=== PATIENT | female | born 1940 | race Caucasian/White ===

== ENCOUNTER 2017-10-31 00:25 | Inpatient (IN) | payer MEDICARE, MEDICAID ==
[2017-10-31] VITALS (36 sets, daily range): BP systolic 91–157; BP diastolic 54–106
[~2017-10-31] VITALS: Ht 154.9 cm; Wt 68.1 kg
[2017-10-31] MEDS ORDERED: DEXAMETHASONE 4 MG/ML SDV (DECADRON) ONE (00:29)
[2017-10-31] MEDS ORDERED: methylPREDNISolone 125 MG (Solu-MEDROL) VIAL IV STA (00:29)
[2017-10-31] MEDS ORDERED: DEXAMETHASONE 4 MG/ML SDV (DECADRON) IH ONE (00:30)
[2017-10-31] MEDS ORDERED: RT-ALBUTEROL/IPRATROPIUM 3 ML (DUONEB) VIAL ONE (00:30)
[2017-10-31] MEDS ORDERED: RT-ALBUTEROL SULF 2.5 MG/3 ML PRE-MIX VIAL ONE (00:30)
[2017-10-31] MEDS ORDERED: RT-ALBUTEROL/IPRATROPIUM 3 ML (DUONEB) VIAL INH ONE (00:30)
[2017-10-31] MEDS ORDERED: NS IV 1000 ML 1,000 ML ONE (00:40)
[2017-10-31] MEDS ORDERED: NS IV 1000 ML 1,000 ML IV ONE (00:42)
[2017-10-31] MEDS ORDERED: RT-ALBUTEROL SULF 2.5 MG/3 ML PRE-MIX VIAL INH STA ×5 (01:05→01:06)
[2017-10-31 01:07] LABS: BASOPHILS % (AUTO) 0 % (0-10); EOSINOPHILS # (AUTO) 0.1 10^3/uL (0.0-0.3); EOSINOPHILS % (AUTO) 0 % (0-10); HEMATOCRIT 40 % (35-52); HEMOGLOBIN 12.1 G/DL (11.5-16.0); LYMPHOCYTES # (AUTO) 2.5 X 10^3 (1.0-4.0); LYMPHOCYTES % (AUTO) 18 % (12-44); MEAN CORPUSCULAR HEMOGLOBIN 30 PG (25-34); MEAN CORPUSCULAR HGB CONC 30 G/DL (32-36); MEAN CORPUSCULAR VOLUME 99 FL (80-99); MEAN PLATELET VOLUME 11.1 FL (7.4-10.4); MONOCYTES # (AUTO) 0.3 X 10^3 (0.0-1.0); MONOCYTES % (AUTO) 2 % (0-12); NEUTROPHILS # (AUTO) 11.1 X 10^3 (1.8-7.8); NEUTROPHILS % (AUTO) 79 % (42-75); PLATELET COUNT 258 10^3/uL (130-400); RED BLOOD COUNT 4.06 10^6/uL (4.35-5.85); RED CELL DISTRIBUTION WIDTH 14.3 % (10.0-14.5)
[2017-10-31 01:15] LABS: ABG BASE EXCESS 2.5 MMOL/L (-2.5-2.5); ABG OXYGEN SATURATION 93 % (94-100); ABG PCO2 59 MMHG (35-45); ABG PO2 83 MMHG (79-93); ABG TCO2 30.2 MMOL/L (21.0-31.0)
[2017-10-31 01:15] LABS: PROTHROMBIN TIME PATIENT 13.3 SEC (12.2-14.7)
[2017-10-31 01:20] LABS: ALLENS TEST YES-POS; INSPIRED O2 8L; PATIENT TEMP 98.6; VENTILATOR NO
[2017-10-31 01:23] LABS: ALANINE AMINOTRANSFERASE 8 U/L (0-55); ALBUMIN 3.9 GM/DL (3.2-4.5); ALKALINE PHOSPHATASE 85 U/L (40-136); BILIRUBIN,TOTAL 0.3 MG/DL (0.1-1.0); BUN/CREATININE RATIO 19; CALCIUM 9.4 MG/DL (8.5-10.1); CARBON DIOXIDE 28 MMOL/L (21-32); CHLORIDE 103 MMOL/L (98-107); CREATININE SERUM 0.91 MG/DL (0.60-1.30); GFR ESTIMATED 60; GLUCOSE 180 MG/DL (70-105); MAGNESIUM 1.9 MG/DL (1.8-2.4); POTASSIUM 3.9 MMOL/L (3.6-5.0); SODIUM 142 MMOL/L (135-145); TOTAL PROTEIN 7.9 GM/DL (6.4-8.2)
[2017-10-31] MEDS ORDERED: cefTRIAXone INJECTION 1,000 MG in NS (IVPB) 100 ML IV ONE (01:30)
[2017-10-31 01:36] LABS: BILIRUBIN,URINE NEGATIVE (NEGATIVE); CLARITY,URINE CLEAR; COLOR,URINE YELLOW; GLUCOSE, URINE (UA) NEGATIVE (NEGATIVE); KETONES,URINE NEGATIVE (NEGATIVE); LEUKOCYTE ESTERASE ,URINE NEGATIVE (NEGATIVE); NITRITE,URINE NEGATIVE (NEGATIVE); PH,URINE 6.5 (5-9); PROTEIN,URINE NEGATIVE (NEGATIVE); UROBILINOGEN,URINE NORMAL (NORMAL)
--- NOTE | 2017-10-31 01:48 | ED Respiratory ---
General Stated Complaint: SOA Source: EMS, [facility] records Exam Limitations: other (PT NOT ABLE TO ANSWER MOST QUESTIONS DUE TO RESPIRATORY DISTRESS) History of Present Illness Date Seen by Provider: Oct 31, 2017 Time Seen by Provider: 00:25 Initial Comments PT ARRIVES VIA EMS FROM [facility] ( [facility] ) PT WITH HISTORY OF COPD HAS HAD INCREASED SHORTNESS OF BREATH THIS EVENING O2 SATS WERE 60% AT [facility]--UP TO 89% ON 4L/NC BP WAS IN 60'S SYSTOLIC AT [facility] PT HAS HAD A COUGH FOR UNKNOWN LENGTH OF TIME PT DENIES CHEST PAIN NO EVIDENCE OF LEG EDEMA NO REPORTED FEVER DUO NEB TREATMENT WAS INITIATED AT [facility] AND EMS CONTINUED IT--O2 SATS UP TO 91% DURING TREATMENT WITH 10L O2 PT IS DNR. PCP: DR. UNGER Allergies and Home Medications Allergies Coded Allergies: codeine (Verified Allergy, Unknown, 02/26/16) morphine (Verified Allergy, Unknown, 02/26/16) Patient Home Medication List Home Medication List Reviewed: Yes Review of Systems Constitutional: no symptoms reported, other (VERY LIMITED INFORMATION) Respiratory: see HPI, cough, short of breath, wheezing Cardiovascular: No chest pain, No edema Past Yiarxae-Vkcwqq-Oaphwt Hx Patient Social History Alcohol Use: Past History (DETAILS UNKNOWN) Recreational Drug Use: No Smoking Status: Former Smoker (DETAILS UNKNOWN) Recent Foreign Travel: No Contact w/Someone Who Travel: No Recent Hopitalizations: No Past Medical History Surgeries: Yes (SURGERIES UNKNOWN) Abdominal Respiratory: Yes COPD Musculoskeletal: Yes (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) Arthritis Anxiety, Depression Physical Exam Vital Signs Vital Signs - First Documented Capillary Refill : General Appearance: WD/WN, severe distress (RESPIRATORY DISTRESS, AUDIBLE WHEEZING, CAN ONLY TALK IN 1-2 WORD SENTENCES OR SLIGHTLY NODS HEAD YES/NO AT TIMES) Respiratory: respiratory distress, decreased breath sounds, accessory muscle use, wheezing (AUDIBLE) Cardiovascular: tachycardia Gastrointestinal: soft Extremities: no pedal edema, normal capillary refill Neurologic/Psychiatric: no motor/sensory deficits (GROSSLY INTACT), other ( AWAKE BUT LETHARGIC--WITH SIGNIFICANT RESPIRATORY DISTRESS) Skin: normal color, warm/dry Focused Exam Lactate Level 10/31/17 00:30: Lactic Acid Level 2.16*H Lactic Acid Level Laboratory Tests Test 10/31/17 00:30 Lactic Acid Level 2.16 MMOL/L (0.50-2.00) *H Progress/Results/Core Measures Suspected Sepsis SIRS Temperature: Pulse: 150 Respiratory Rate: 26 Laboratory Tests 10/31/17 00:30: White Blood Count 14.0H Blood Pressure 105 /23 Mean: 10/31/17 00:30: Lactic Acid Level 2.16*H Laboratory Tests 10/31/17 00:30: Creatinine 0.91, INR Comment 1.0, Platelet Count 258, Total Bilirubin 0.3 Results/Orders Lab Results Laboratory Tests Test 10/31/17 00:30 10/31/17 01:08 Range/Units White Blood Count 14.0 H 4.3-11.0 10^3/uL Red Blood Count 4.06 L 4.35-5.85 10^6/uL Hemoglobin 12.1 11.5-16.0 G/DL Hematocrit 40 35-52 % Mean Corpuscular Volume 99 80-99 FL Mean Corpuscular Hemoglobin 30 25-34 PG Mean Corpuscular Hemoglobin Concent 30 L 32-36 G/DL Red Cell Distribution Width 14.3 10.0-14.5 % Platelet Count 258 130-400 10^3/uL Mean Platelet Volume 11.1 H 7.4-10.4 FL Neutrophils (%) (Auto) 79 H 42-75 % Lymphocytes (%) (Auto) 18 12-44 % Monocytes (%) (Auto) 2 0-12 % Eosinophils (%) (Auto) 0 0-10 % Basophils (%) (Auto) 0 0-10 % Neutrophils # (Auto) 11.1 H 1.8-7.8 X 10^3 Lymphocytes # (Auto) 2.5 1.0-4.0 X 10^3 Monocytes # (Auto) 0.3 0.0-1.0 X 10^3 Eosinophils # (Auto) 0.1 0.0-0.3 10^3/uL Basophils # (Auto) 0.0 0.0-0.1 10^3/uL Prothrombin Time 13.3 12.2-14.7 SEC INR Comment 1.0 0.8-1.4 Activated Partial Thromboplast Time 27 24-35 SEC Sodium Level 142 135-145 MMOL/L Potassium Level 3.9 3.6-5.0 MMOL/L Chloride Level 103 98-107 MMOL/L Carbon Dioxide Level 28 21-32 MMOL/L Anion Gap 11 5-14 MMOL/L Blood Urea Nitrogen 17 7-18 MG/DL Creatinine 0.91 0.60-1.30 MG/DL Estimat Glomerular Filtration Rate 60 BUN/Creatinine Ratio 19 Glucose Level 180 H 70-105 MG/DL Lactic Acid Level 2.16 *H 0.50-2.00 MMOL/L Calcium Level 9.4 8.5-10.1 MG/DL Magnesium Level 1.9 1.8-2.4 MG/DL Total Bilirubin 0.3 0.1-1.0 MG/DL Aspartate Amino Transf (AST/SGOT) 15 5-34 U/L Alanine Aminotransferase (ALT/SGPT) 8 0-55 U/L Alkaline Phosphatase 85 40-136 U/L Troponin I < 0.30 <0.30 NG/ML B-Type Natriuretic Peptide 16.4 <100.0 PG/ML Total Protein 7.9 6.4-8.2 GM/DL Albumin 3.9 3.2-4.5 GM/DL Blood Gas Puncture Site LEFT RADIAL Blood Gas Patient Temperature 98.6 Arterial Blood pH 7.30 *L 7.37-7.43 Arterial Blood Partial Pressure CO2 59 H 35-45 MMHG Arterial Blood Partial Pressure O2 83 79-93 MMHG Arterial Blood HCO3 28 H 23-27 MMOL/L Arterial Blood Total CO2 30.2 21.0-31.0 MMOL/L Arterial Blood Oxygen Saturation 93 L 94-100 % Arterial Blood Base Excess 2.5 -2.5-2.5 MMOL/L Demetri Test YES-POS Blood Gas Ventilator Setting NO Blood Gas Inspired Oxygen 8L My Orders Orders - BRISSA DEGROOT DO Saline Lock/Iv-Start (10/31/17:) Ekg Tracing (10/31/17:) O2 (10/31/17:) Monitor-Rhythm Ecg Trace Only (10/31/17) Arterial Blood Gas (10/31/17:) BNP (10/31/17) Cbc With Automated Diff (10/31/17:) Comprehensive Metabolic Panel (10/31/17:) Lactic Acid Analyzer (10/31/17:) Magnesium (10/31/17:) Protime With Inr (10/31/17) Partial Thromboplastin Time (10/31/17 00:29) Troponin I (10/31/17 00:29) Blood Culture (10/31/17 00:29) Albuterol/Ipra Inhalation Soln (Duoneb I (10/31/17 00:30) Dexamethasone Injection (Decadron Inject (10/31/17 00:30) Rt Request For Service (Other) (10/31/17 00:29) Methylprednisolone Sod Succ (Solu-Medrol (10/31/17 00:29) Svn Small Volume Nebulizer (10/31/17 00:29) Saline Lock/Iv-Start (10/31/17 00:42) Ns Iv 1000 Ml (Sodium Chloride 0.9%) (10/31/17 00:42) Ns Iv 1000 Ml (Sodium Chloride 0.9%) (10/31/17 00:40) Albuterol Pre-Mix Nebs (Rt) (Proventil (10/31/17 01:05) Svn Small Volume Nebulizer (10/31/17 01:05) Albuterol Pre-Mix Nebs (Rt) (Proventil (10/31/17 01:05) Svn Small Volume Nebulizer (10/31/17 01:05) Albuterol Pre-Mix Nebs (Rt) (Proventil (10/31/17 01:06) Svn Small Volume Nebulizer (10/31/17 01:06) Albuterol Pre-Mix Nebs (Rt) (Proventil (10/31/17 01:06) Svn Small Volume Nebulizer (10/31/17 01:06) Albuterol Pre-Mix Nebs (Rt) (Proventil (10/31/17 01:06) Svn Small Volume Nebulizer (10/31/17 01:06) Chest 1 View, Ap/Pa Only (10/31/17 ) Ceftriaxone Injection (Rocephin Injectio (10/31/17 01:30) Medications Given in ED Current Medications Medications Dose Ordered Sig/Ling Route Start Time Stop Time Status Last Admin Dose Admin Albuterol/ Ipratropium 3 ml ONCE ONCE INH 10/31/17 00:30 10/31/17 00:32 DC 10/31/17 00:45 3 ML Dexamethasone Sodium Phosphate 30 mg ONCE ONCE IH 10/31/17 00:30 10/31/17 00:32 DC 10/31/17 00:45 30 MG Sodium Chloride 1,000 ml @ 0 mls/hr Q0M ONCE IV 10/31/17 00:42 10/31/17 00:43 DC 10/31/17 00:40 60 MLS/HR Vital Signs/I&O 10/31/17 10/31/17 10/31/17 10/31/17 00:25 00:25 00:45 00:46 Temp 98.4 98.3 Pulse 130 128 Resp 32 27 B/P (MAP) 69/35 (46) 88/37 Pulse Ox 90 90 90 90 O2 Delivery Simple Mask Simple Mask Simple Mask Simple Mask O2 Flow Rate 10.00 10.00 10.00 8.00 10/31/17 01:00 Temp 98.1 Pulse 130 Resp 40 B/P (MAP) 116/52 Pulse Ox 90 O2 Delivery Simple Mask O2 Flow Rate 10.00 Capillary Refill : Progress Note : Progress Note BP UP WITH FLUIDS O2 SATS UP WITH CONTINUOUS NEB TREATMENT, AND THEN BIPAP PLACED, AFTER RECEIVING ABG RESULTS, AND PT SHOWING SIGNS OF RESPIRATORY FATIGUE. ECG Initial ECG Impression Date: Oct 31, 2017 Initial ECG Impression Time: 00:57 Initial ECG Rate: 128 Initial ECG Rhythm: S.Tach Initial ECG Impression: Nonspecific Changes (IVCD) Diagnostic Imaging Comments CXR--BIBASILAR ATELECTASIS/INFILTRATES; CHRONIC LINEAR SCARRING YAMILEX--PENDING RADIOLOGIST REVIEW Reviewed: Reviewed by [place] Departure Communication (Admissions) 0129--SPOKE WITH DR. BERNAL, ACCEPTS PT FOR ADMIT. Impression Primary Impression: Acute on chronic respiratory failure Additional Impressions: Severe sepsis SUSPECTED PNEUMONIA Disposition: ADMITTED INPATIENT Condition: Improved Admissions Decision to Admit Reason: Admit from ER (General) Decision to Admit/Date: Oct 31, 2017 Time/Decision to Admit Time: 01:30 Departure-Patient Inst. Referrals: JACK UNGER DO (PCP/Family) Primary Care Physician BRISSA DEGROOT DO Oct 31, 2017 01:48
[2017-10-31 01:54] LABS: BACTERIA,URINE NEGATIVE /HPF
[2017-10-31 02:45] LABS: ABG BASE EXCESS 1.9 MMOL/L (-2.5-2.5); ABG OXYGEN SATURATION 94 % (94-100); ABG PCO2 53 MMHG (35-45); ABG PO2 78 MMHG (79-93); ABG TCO2 28.9 MMOL/L (21.0-31.0)
[2017-10-31 02:48] LABS: ABG PH 7.33 (7.37-7.43); ALLENS TEST YES-POS; INSPIRED O2 50%; PATIENT TEMP 98.3; VENTILATOR NO
[2017-10-31] MEDS ORDERED: RT-ALBUTEROL/IPRATROPIUM 3 ML (DUONEB) VIAL INH PRN (04:30)
[2017-10-31] MEDS ORDERED: NS IV PRN (04:30)
[2017-10-31] MEDS: NOREPINEPHRINE 4 MG in NS (IVPB) 250 ML IV SCH ×2 (04:31→18:03)
[2017-10-31] MEDS: NS IV 1000 ML 1,000 ML IV SCH ×4 (04:32→17:00)
[2017-10-31] MEDS: RT-ALBUTEROL/IPRATROPIUM 3 ML (DUONEB) VIAL INH SCH ×5 (05:55→22:24)
[2017-10-31] MEDS: methylPREDNISolone 125 MG (Solu-MEDROL) VIAL IVP SCH ×3 (07:11→18:44)
--- NOTE | 2017-10-31 07:47 | Diagnostic Imaging Report ---
Indication: Shortness of air. Comparison: The study is compared with exam 02/26/2016. Findings: Some linear scarring left perihilar radiating to the lateral chest wall, unchanged air trapping and COPD are chronic. Some biapical pleural-parenchymal scarring stable. There is artifact with overlying support apparatus projecting over the left upper chest and paramediastinal region, partially obscuring that segment. No effusion or pneumothorax and no adverse development is apparent. Impression: Stable chronic findings as described. Dictated by: Dictated on workstation # [id number]
[2017-10-31 08:09] LABS: BASOPHILS % (AUTO) 0 % (0-10); EOSINOPHILS % (AUTO) 0 % (0-10); HEMATOCRIT 36 % (35-52); HEMOGLOBIN 10.8 G/DL (11.5-16.0); LYMPHOCYTES # (AUTO) 0.3 X 10^3 (1.0-4.0); LYMPHOCYTES % (AUTO) 2 % (12-44); MEAN CORPUSCULAR HEMOGLOBIN 30 PG (25-34); MEAN CORPUSCULAR HGB CONC 30 G/DL (32-36); MEAN CORPUSCULAR VOLUME 99 FL (80-99); MEAN PLATELET VOLUME 10.5 FL (7.4-10.4); MONOCYTES # (AUTO) 0.3 X 10^3 (0.0-1.0); MONOCYTES % (AUTO) 2 % (0-12); NEUTROPHILS # (AUTO) 20.3 X 10^3 (1.8-7.8); NEUTROPHILS % (AUTO) 97 % (42-75); PLATELET COUNT 206 10^3/uL (130-400); RED BLOOD COUNT 3.62 10^6/uL (4.35-5.85); RED CELL DISTRIBUTION WIDTH 14.2 % (10.0-14.5); WHITE BLOOD COUNT 20.9 10^3/uL (4.3-11.0)
[2017-10-31 08:30] LABS: BAND NEUTROPHILS 2 %; BASOPHILS % (MANUAL) 0 %; EOSINOPHILS % (MANUAL) 0 %; LYMPHOCYTES % (MANUAL) 3 %; MONOCYTES % (MANUAL) 1 %; NEUTROPHILS % (MANUAL) 94 %; RBC MORPH NORMAL
[2017-10-31 08:31] LABS: ALANINE AMINOTRANSFERASE 8 U/L (0-55); ALBUMIN 3.5 GM/DL (3.2-4.5); ALKALINE PHOSPHATASE 68 U/L (40-136); BILIRUBIN,TOTAL 0.3 MG/DL (0.1-1.0); BUN/CREATININE RATIO 21; CALCIUM 8.5 MG/DL (8.5-10.1); CARBON DIOXIDE 25 MMOL/L (21-32); CHLORIDE 107 MMOL/L (98-107); CREATININE SERUM 0.85 MG/DL (0.60-1.30); GFR ESTIMATED > 60; GLUCOSE 217 MG/DL (70-105); POTASSIUM 3.7 MMOL/L (3.6-5.0); SODIUM 142 MMOL/L (135-145); TOTAL PROTEIN 7.1 GM/DL (6.4-8.2)
--- NOTE | 2017-10-31 08:43 | Diagnostic Imaging Report ---
INDICATION: Respiratory failure, sepsis and hypotension. Comparison made with prior examination 10/31/2017. FINDINGS: Heart size is normal. There is some unchanged scarring or atelectasis in left upper lobe. There are patchy bibasilar infiltrates left greater than right. There appears to be a small left pleural effusion. There is no pneumothorax. Mediastinum is unremarkable. IMPRESSION: Patchy bibasilar infiltrates, left greater than right with unchanged linear scarring or atelectasis in the left perihilar region. Dictated by: Dictated on workstation # [id number]
[2017-10-31] MEDS: AZITHROMYCIN INJECTION 500 MG in NS (IVPB) 250 ML IV SCH (09:48)
[2017-10-31] MEDS ORDERED: ACET325T38 PO (10:17)
[2017-10-31] MEDS ORDERED: TIOT18CA2 INH (10:17)
[2017-10-31] MEDS ORDERED: BACL10TA PO (10:17)
[2017-10-31] MEDS ORDERED: METH10TA2 PO (10:17)
[2017-10-31] MEDS ORDERED: GUAI600T43 PO (10:17)
[2017-10-31] MEDS ORDERED: ALBU18HF2 INH (10:17)
[2017-10-31] MEDS ORDERED: SERT50TA9 PO (10:17)
[2017-10-31] MEDS ORDERED: BUDE10.2 INH (10:17)
[2017-10-31] MEDS ORDERED: TRAZ100T92 PO (10:17)
[2017-10-31] MEDS ORDERED: HYDR-3820 PO (10:17)
[2017-10-31] MEDS ORDERED: LORA0.5T PO (10:17)
[2017-10-31] MEDS ORDERED: CHOL200025 PO (10:17)
[2017-10-31] MEDS ORDERED: NF-SOLIF5T PO (10:17)
--- NOTE | 2017-10-31 13:41 | History & Physical-Hospitalist ---
History of Present Illness HPI/Chief Complaint The patient is a 76-year-old white female resident of [facility]. She was sent to the emergency room yesterday by the staff after observing that her O2 saturations had dropped to 60 percent. By her arrival her SaO2 was 89 percent on 4 L per nasal cannula. Her blood pressure was said to be 60 systolic at the residential she reports that she has had chronic respiratory difficulties. She uses oxygen chronically. She is a DO NOT RESUSCITATE status. Source: patient Exam Limitations: other (patient seems to be confused about disease, dates, and her situation) Date Seen 10/31/17 Time Seen by Provider: 13:36 Attending Physician Sergio Bernal MD PCP Ron Welch DO Referring Physician Date of Admission Oct 31, 2017 at 01:20 Home Medications & Allergies Home Medications Reviewed patient Home Medication Reconciliation performed by pharmacy medication reconciliations industrial ecology technician and/or nursing. Patients Allergies have been reviewed. Allergies Allergies Coded Allergies codeine (Verified Allergy, Unknown, 02/26/16) morphine (Verified Allergy, Unknown, 02/26/16) Past Iveldwf-Ycxvpi-Sxytus Hx Past Med/Social Hx: Reviewed Nursing Past Med/Soc Hx Patient Social History Alcohol Use: Past History Recreational Drug Use: No Smoking Status: Former Smoker Physical Abuse Screen: No Sexual Abuse: No Recent Foreign Travel: No Contact w/other who traveled: No Recent Hopitalizations: No Recent Infectious Disease Expo: No Immunizations Up To Date Date of Pneumonia Vaccine: May 02, 2016 Seasonal Allergies Seasonal Allergies: No Past Medical History Surgeries: Abdominal Currently Using BIPAP: Yes Musculoskeletal: Arthritis Psychosocial: Anxiety, Depression History of Blood Disorders: No Review of Systems Constitutional: see HPI EENTM: no symptoms reported Respiratory: see HPI, cough, short of breath Cardiovascular: no symptoms reported Gastrointestinal: no symptoms reported Genitourinary: no symptoms reported Musculoskeletal: no symptoms reported Skin: no symptoms reported Psychiatric/Neurological: No Symptoms Reported Physical Exam Physical Exam Vital Signs Capillary Refill : Less Than 3 Seconds General Appearance: Mild Distress, Moderate Distress Eyes: Bilateral Eye Normal Inspection HEENT: Normal ENT Inspection Neck: Normal Inspection Respiratory: Decreased Breath Sounds (breath sounds are quite distant with out wheezing or rhonchi) Cardiovascular: Regular Rate, Rhythm, No Edema, No Gallop, No JVD, No Murmur, Normal Peripheral Pulses Gastrointestinal: Normal Bowel Sounds, Non Tender, Soft Back: Normal Inspection Extremity: Normal Capillary Refill, Normal Inspection, Normal Range of Motion, Non Tender, No Calf Tenderness, No Pedal Edema Neurologic/Psychiatric: Alert, No Motor/Sensory Deficits, Normal Mood/Affect, electric serviceman II-XII Norm as Tested Skin: Normal Color, Warm/Dry Lymphatic: No Adenopathy Results Results/Procedures Labs Patient resulted labs reviewed. Assessment/Plan Admission Diagnosis 1.COPD 2.impending respiratory failure. 3.chest x-ray today as compared to yesterday shows development of infiltrate consistent with pneumonia. Admission Status: Inpatient Order (span 2 midnights) Reason for Inpatient Admission: Respiratory failure. Developing infiltrate. White count equals 20,000 AND consistent with sepsis Critical Care Critically Ill Patient Clinical Quality Measures DVT/VTE Risk/Contraindication: Risk Factor Score Per Nursin RFS Level Per Nursing on Admit: 4+=Very High SERGIO BERNAL MD Oct 31, 2017 13:41
[2017-10-31] MEDS ORDERED: METHADONE HCL 10 MG PO SCH (13:45)
[2017-10-31] MEDS: METHADONE 10 MG (DOLOPHINE) TAB PO SCH ×2 (14:39→21:02)
[2017-10-31] MEDS: LORazepam 0.5 MG (ATIVAN) TABLET PO SCH (18:04)
[2017-10-31] MEDS: HYDROcodone/APAP 10 MG/325 MG (LORTAB) TAB PO SCH (21:02)
[2017-11-01] VITALS (11 sets, daily range): BP systolic 147–162; BP diastolic 48–85
[2017-11-01] MEDS ORDERED: ZIPRASIDONE 20 MG INJ (GEODON) VIAL IM ONE (01:00)
[2017-11-01] MEDS: methylPREDNISolone 125 MG (Solu-MEDROL) VIAL IVP SCH ×4 (01:11→18:15)
[2017-11-01] MEDS: NS IV 1000 ML 1,000 ML IV SCH (01:12)
[2017-11-01] MEDS: cefTRIAXone INJECTION 1,000 MG in NS (IVPB) 100 ML IV SCH (01:37)
[2017-11-01] MEDS: LORazepam 0.5 MG (ATIVAN) TABLET PO SCH ×3 (02:04→18:15)
[2017-11-01 03:37] LABS: BASOPHILS % (AUTO) 0 % (0-10); EOSINOPHILS % (AUTO) 0 % (0-10); HEMATOCRIT 34 % (35-52); HEMOGLOBIN 10.7 G/DL (11.5-16.0); LYMPHOCYTES # (AUTO) 0.9 X 10^3 (1.0-4.0); LYMPHOCYTES % (AUTO) 3 % (12-44); MEAN CORPUSCULAR HEMOGLOBIN 31 PG (25-34); MEAN CORPUSCULAR HGB CONC 32 G/DL (32-36); MEAN CORPUSCULAR VOLUME 96 FL (80-99); MEAN PLATELET VOLUME 11.3 FL (7.4-10.4); MONOCYTES # (AUTO) 0.5 X 10^3 (0.0-1.0); MONOCYTES % (AUTO) 2 % (0-12); NEUTROPHILS # (AUTO) 26.9 X 10^3 (1.8-7.8); NEUTROPHILS % (AUTO) 95 % (42-75); PLATELET COUNT 202 10^3/uL (130-400); WHITE BLOOD COUNT 28.2 10^3/uL (4.3-11.0)
[2017-11-01] MEDS: RT-ALBUTEROL/IPRATROPIUM 3 ML (DUONEB) VIAL INH SCH ×6 (03:50→21:19)
[2017-11-01 03:58] LABS: ALANINE AMINOTRANSFERASE 10 U/L (0-55); ALBUMIN 3.5 GM/DL (3.2-4.5); ALKALINE PHOSPHATASE 69 U/L (40-136); BILIRUBIN,TOTAL 0.3 MG/DL (0.1-1.0); BUN/CREATININE RATIO 25; CARBON DIOXIDE 26 MMOL/L (21-32); CHLORIDE 106 MMOL/L (98-107); CREATININE SERUM 0.65 MG/DL (0.60-1.30); GFR ESTIMATED > 60; GLUCOSE 128 MG/DL (70-105); POTASSIUM 3.6 MMOL/L (3.6-5.0); SODIUM 141 MMOL/L (135-145); TOTAL PROTEIN 7.4 GM/DL (6.4-8.2)
[2017-11-01] MEDS: TROSPIUM 20 MG (SANCTURA) TAB PO SCH ×2 (05:51→18:14)
[2017-11-01] MEDS: METHADONE 10 MG (DOLOPHINE) TAB PO SCH ×3 (06:06→21:14)
[2017-11-01] MEDS: NOREPINEPHRINE 4 MG in NS (IVPB) 250 ML IV SCH ×2 (07:44→21:56)
[2017-11-01] MEDS ORDERED: SOLIFENACIN 5 MG TAB (VESICARE) NON-FORMULARY PO SCH (09:00)
[2017-11-01] MEDS: SERTRALINE 50 MG (ZOLOFT) TABLET PO SCH (09:26)
[2017-11-01] MEDS: HYDROcodone/APAP 10 MG/325 MG (LORTAB) TAB PO SCH ×2 (09:26→21:14)
[2017-11-01] MEDS: AZITHROMYCIN INJECTION 500 MG in NS (IVPB) 250 ML IV SCH (09:26)
--- NOTE | 2017-11-01 12:42 | Progress Note-Hospitalist ---
Subjective HPI/CC On Admission Date Seen by Provider: Nov 01, 2017 Time Seen by Provider: 12:00 The patient is a 76-year-old white female resident of [facility]. She was sent to the emergency room yesterday by the staff after observing that her O2 saturations had dropped to 60 percent. By her arrival her SaO2 was 89 percent on 4 L per nasal cannula. Her blood pressure was said to be 60 systolic at the [facility] she reports that she has had chronic respiratory difficulties. She uses oxygen chronically. She is a DO NOT RESUSCITATE status. Subjective/Events-last exam Patient remains confused and appears that his baseline considering she is in a [facility] Does not know who her family doctor is Reports that she can't breathe but she is oxygenating well on 3 L and having no tachypnea Noted white blood cell count of 28,000 today No fever and vitals remained stable Off BiPAP and doing well with that Overall prognosis is extremely poor considering the severity of her COPD and oxygen dependency and dementia Review of Systems Pulmonary: Dyspnea Focused Exam Lactate Level 10/31/17 00:30: Lactic Acid Level 2.16*H 10/31/17 02:35: Lactic Acid Level 2.74*H Objective Exam Vital Signs Vital Signs Date Time Temp Pulse Resp B/P (MAP) Pulse Ox O2 Delivery O2 Flow Rate FiO2 11/01/17 16:50 97.7 87 20 149/48 (81) 97 NIV Bilevel 11/01/17 15:53 40.00 11/01/17 00:00 40 Capillary Refill : Less Than 3 Seconds General Appearance: No Apparent Distress, WD/WN HEENT: Normal ENT Inspection Neck: Normal Inspection, Non Tender Respiratory: Crackles, Decreased Breath Sounds, Wheezing Cardiovascular: Regular Rate, Rhythm, No Edema Extremity: Normal Capillary Refill, Normal Range of Motion, Non Tender, No Calf Tenderness Neurologic/Psychiatric: Alert, Disoriented Skin: Normal Color, Warm/Dry Lymphatic: No Adenopathy Results/Procedures Lab Laboratory Tests 11/01/17 03:00 Patient resulted labs reviewed. Assessment/Plan Assessment and Plan Assess & Plan/Chief Complaint Assessment: Pneumonia right upper lobe Acute exacerbation of COPD Oxygen dependent 30/01 Dementia Chronic pain on methadone Anxiety Plan: DO NOT RESUSCITATE IV antibiotics Nebulizers IV Solu-Medrol Consult Dr. Gilman in morning BiPAP as needed Critical Care Critical Care: Critically Ill Patient Diagnosis/Problems Diagnosis/Problems (1) Severe sepsis Status: Acute (2) Pneumonia Status: Acute Qualifiers: Pneumonia type: due to unspecified organism Laterality: unspecified laterality Lung location: unspecified part of lung Qualified Codes: J18.9 - Pneumonia, unspecified organism (3) COPD exacerbation Status: Acute (4) Dementia Status: Chronic Qualifiers: Dementia type: unspecified type Dementia behavioral disturbance: with behavioral disturbance Qualified Codes: F03.91 - Unspecified dementia with behavioral disturbance (5) Leukocytosis Status: Acute (6) Chronic pain Status: Chronic Qualifiers: Chronic pain type: chronic pain syndrome Qualified Codes: G89.4 - Chronic pain syndrome (7) Anxiety Status: Chronic Clinical Quality Measures DVT/VTE Risk/Contraindication: Risk Factor Score Per Nursin RFS Level Per Nursing on Admit: 4+=Very High NAVIN DELEON DO Nov 01, 2017 12:42
[2017-11-01] MEDS ORDERED: NON-FORMULARY MEDICATION 1 EA EA (Albuterol Sulfate (Ventolin Hfa) 2 PUFF) INH PRN (12:45)
[2017-11-01] MEDS ORDERED: ACETAMINOPHEN 325 MG TABLET/CAPLET (TYLENOL) PO PRN (12:45)
[2017-11-01] MEDS ORDERED: METHADONE HCL 10 MG PO SCH (12:45)
[2017-11-01] MEDS ORDERED: NON-FORMULARY MEDICATION 1 EA EA (Budesonide/Formoterol Fumarate (Symbicort 160-4.5 Mcg In INH SCH (21:00)
[2017-11-01] MEDS: BACLOFEN 10 MG (LIORESAL) TAB PO SCH (21:14)
[2017-11-01] MEDS: guaiFENesin (MUCINEX) 600 MG TAB PO SCH (21:14)
[2017-11-01] MEDS: traZODone 100 MG (DESYREL) TAB PO SCH (21:15)
[2017-11-01] MEDS: RT-ADVAIR HFA 115/21 MCG PER PUFF IH SCH (21:19)
[2017-11-02] VITALS (8 sets, daily range): BP systolic 106–170; BP diastolic 69–90
[2017-11-02] MEDS: methylPREDNISolone 125 MG (Solu-MEDROL) VIAL IVP SCH ×4 (00:41→17:10)
[2017-11-02] MEDS: NS IV 1000 ML 1,000 ML IV SCH (00:41)
[2017-11-02] MEDS: RT-ALBUTEROL/IPRATROPIUM 3 ML (DUONEB) VIAL INH SCH ×6 (02:05→23:08)
[2017-11-02] MEDS: LORazepam 0.5 MG (ATIVAN) TABLET PO SCH ×3 (02:10→17:07)
[2017-11-02] MEDS: cefTRIAXone INJECTION 1,000 MG in NS (IVPB) 100 ML IV SCH (02:10)
[2017-11-02 04:01] LABS: BASOPHILS % (AUTO) 0 % (0-10); EOSINOPHILS % (AUTO) 0 % (0-10); HEMATOCRIT 30 % (35-52); HEMOGLOBIN 9.3 G/DL (11.5-16.0); LYMPHOCYTES # (AUTO) 0.6 X 10^3 (1.0-4.0); LYMPHOCYTES % (AUTO) 3 % (12-44); MEAN CORPUSCULAR HEMOGLOBIN 30 PG (25-34); MEAN CORPUSCULAR HGB CONC 31 G/DL (32-36); MEAN CORPUSCULAR VOLUME 97 FL (80-99); MEAN PLATELET VOLUME 10.4 FL (7.4-10.4); MONOCYTES # (AUTO) 0.3 X 10^3 (0.0-1.0); MONOCYTES % (AUTO) 2 % (0-12); NEUTROPHILS # (AUTO) 17.1 X 10^3 (1.8-7.8); NEUTROPHILS % (AUTO) 95 % (42-75); PLATELET COUNT 170 10^3/uL (130-400); RED CELL DISTRIBUTION WIDTH 14.5 % (10.0-14.5)
[2017-11-02 04:06] LABS: ALANINE AMINOTRANSFERASE 14 U/L (0-55); ALBUMIN 3.5 GM/DL (3.2-4.5); ALKALINE PHOSPHATASE 72 U/L (40-136); BILIRUBIN,TOTAL 0.3 MG/DL (0.1-1.0); BUN/CREATININE RATIO 25; CALCIUM 9.1 MG/DL (8.5-10.1); CARBON DIOXIDE 24 MMOL/L (21-32); CHLORIDE 105 MMOL/L (98-107); CREATININE SERUM 0.64 MG/DL (0.60-1.30); GFR ESTIMATED > 60; GLUCOSE 164 MG/DL (70-105); POTASSIUM 3.6 MMOL/L (3.6-5.0); SODIUM 139 MMOL/L (135-145); TOTAL PROTEIN 7.7 GM/DL (6.4-8.2)
--- NOTE | 2017-11-02 06:00 | Pulmonary Consultation ---
History of Present Illness History of Present Illness Date of Consultation 11/02/17 05:55 Time Seen by Provider: 06:06 Date of Admission History of Present Illness 76yo with hx of COPD and dementia from [facility] presented to ED secondary to hypoxia found to have Sp02 of 89% while on 4 liters of oxygen . She was dx with severe sepsis secondary to pneumonia and admitted to ICU on 10/31. Pt is a DNR. Pt states she is still coughing up sputum with some bloody sputum. I am consulted for pulmonary/CC management. Allergies and Home Medications Allergies Coded Allergies: codeine (Verified Allergy, Unknown, 02/26/16) morphine (Verified Allergy, Unknown, 02/26/16) Home Medications Acetaminophen 325 Mg Tablet, 650 MG PO Q4H PRN for PAIN-MILD, (Reported) TAKES 2 (325MG) TABLET Albuterol Sulfate 18 Gm Hfa.aer.ad, 2 PUFF INH Q4H PRN for WHEEZING, (Reported) Baclofen 10 Mg Tablet, 10 MG PO BID, (Reported) Budesonide/Formoterol Fumarate 10.2 Gm Hfa.aer.ad, 2 PUFF INH BID, (Reported) Cholecalciferol (Vitamin D3) 2,000 Unit Tablet, 2,000 UNIT PO DAILY, (Reported) Guaifenesin 600 Mg Tab.er.12h, 600 MG PO BID, (Reported) Hydrocodone/Acetaminophen 1 Each Tablet, 1 TAB PO BID, (Reported) Lorazepam 0.5 Mg Tablet, 0.5 MG PO Q8H, (Reported) Methadone HCl 10 Mg Tablet, 10 MG PO Q8H, (Reported) Sertraline HCl 50 Mg Tablet, 150 MG PO DAILY, (Reported) TAKES 3 (50MG) TABLETS Solifenacin Succinate 5 Mg Tablet, 10 MG PO DAILY, (Reported) TAKES 2 (5MG) TABLETS Tiotropium [place] 1 Inh Aerp, 1 CAP INH DAILY, (Reported) Trazodone HCl 100 Mg Tablet, 200 MG PO HS, (Reported) TAKES 2 (100MG) TABLETS Past Rxebqtp-Oatant-Abqefx Hx Patient Social History Alcohol Use: Past History Recreational Drug Use: No Smoking Status: Former Smoker Recent Foreign Travel: No Contact w/Someone Who Travel: No Recent Infectious Disease Expo: No Recent Hopitalizations: No Immunizations Up To Date Date of Pneumonia Vaccine: May 02, 2016 Seasonal Allergies Seasonal Allergies: No Past Medical History Surgeries: Yes (SURGERIES UNKNOWN) Abdominal Respiratory: Yes COPD Currently Using BIPAP: Yes Cardiac: No Neurological: No Genitourinary: No Gastrointestinal: No Musculoskeletal: Yes (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) Arthritis Endocrine: No Cancer: No Psychosocial: Yes (Has manipulative behavior) Anxiety, Depression Integumentary: No Blood Disorders: No Review of Systems Time Seen by Provider: 06:15 Constitutional: Fever, Chills, Sweats, Weakness, Malaise Eyes: No: Pain, Vision change, Conjunctivae inflammation, Eyelid inflammation, Other, Redness ENT: No: Ear pain, Ear discharge, Nose pain, Nose discharge, Nose congestion, Mouth pain, Mouth swelling, Throat pain, Throat swelling, Other Respiratory: Cough, Shortness of breath, SOB with excertion, Wheezing, Hemoptysis, Sputum Cardiovascular: Palpitations, Orthopnea, Paroxysmal Noc. Dyspnea, Edema Gastrointestinal: Constipation; No: Nausea, Vomiting, Abdominal Pain, Diarrhea , Melena, Hematochezia, Other Neurological: Weakness, Confusion Exam Exam Vital Signs Date Time Temp Pulse Resp B/P (MAP) Pulse Ox O2 Delivery O2 Flow Rate FiO2 11/02/17 04:17 96 Nasal Cannula 2.00 11/02/17 04:00 Nasal Cannula 3.00 11/02/17 04:00 80 153/75 (101) 98 Nasal Cannula 3.00 11/02/17 02:05 100 Nasal Cannula 3.00 11/02/17 01:00 95 11/02/17 00:00 102 155/86 (109) 100 NIV Bilevel 40.00 11/02/17 00:00 NIV Bilevel 40 11/01/17 23:23 92 14 40.00 11/01/17 21:23 40.00 11/01/17 21:19 123 18 96 40.00 11/01/17 21:00 NIV Bilevel 40 11/01/17 20:00 99.6 120 21 147/84 (105) 98 NIV Bilevel 40.00 11/01/17 20:00 NIV Bilevel 40 11/01/17 19:16 106 18 95 40.00 11/01/17 19:00 112 11/01/17 16:50 97.7 87 20 149/48 (81) 97 NIV Bilevel 11/01/17 15:53 117 19 97 40.00 11/01/17 15:50 Nasal Cannula 3.00 11/01/17 13:46 99 Nasal Cannula 3.00 11/01/17 13:00 88 11/01/17 12:50 97.5 86 20 150/72 (98) 97 Nasal Cannula 3.00 11/01/17 11:16 Nasal Cannula 3.00 11/01/17 10:09 97 Nasal Cannula 3.00 11/01/17 09:00 Nasal Cannula 3.00 11/01/17 08:50 97.8 95 20 155/77 (103) 97 Nasal Cannula 3.00 11/01/17 08:00 Nasal Cannula 3.00 11/01/17 07:56 98 Nasal Cannula 5.00 11/01/17 07:00 109 I & O 11/02/17 07:00 Intake Total 1800 ml Output Total 1450 ml Balance 350 ml General Appearance: No Apparent Distress, WD/WN, Anxious HEENT: Normal ENT Inspection Neck: Normal Inspection, Non Tender Respiratory: Crackles, Decreased Breath Sounds Cardiovascular: Regular Rate, Rhythm, No Edema Capillary Refill: Less Than 3 Seconds Gastrointestinal: soft Extremity: Normal Capillary Refill, Normal Range of Motion, Non Tender, No Calf Tenderness Neurologic/Psychiatric: Alert, Disoriented Skin: Normal Color, Warm/Dry Lymphatic: No Adenopathy Results Lab Laboratory Tests 10/31/17 08:05 11/01/17 03:00 11/02/17 03:00 Assessment/Plan Assessment/Plan Severe Sepsis With Pneumonia -Continue Rocephin and azithromycin -Cardoza cultures pending -IVF Acute on chronic respiratory failure -Pt used BIPAP last night. -BiPAP PRN COPDAE -Decrease Solumedrol to 40 Q6 -SVNS -PT is a DNR Dementia/debility from [facility] 255 Critical Care: Critically Ill Patient GIO JEAN-BAPTISTE DO Nov 02, 2017 06:00
[2017-11-02] MEDS: METHADONE 10 MG (DOLOPHINE) TAB PO SCH ×3 (06:22→21:00)
[2017-11-02] MEDS: TROSPIUM 20 MG (SANCTURA) TAB PO SCH ×2 (06:22→17:07)
[2017-11-02] MEDS: RT-ADVAIR HFA 115/21 MCG PER PUFF IH SCH ×2 (07:06→19:21)
[2017-11-02] MEDS ORDERED: NON-FORMULARY MEDICATION 1 EA EA (Cholecalciferol (Vitamin D3) (Vitamin D3) 2,000 UNIT) PO SCH (09:00)
[2017-11-02] MEDS: SERTRALINE 50 MG (ZOLOFT) TABLET PO SCH (10:22)
[2017-11-02] MEDS: BACLOFEN 10 MG (LIORESAL) TAB PO SCH ×2 (10:23→20:02)
[2017-11-02] MEDS: HYDROcodone/APAP 10 MG/325 MG (LORTAB) TAB PO SCH ×2 (10:24→20:02)
[2017-11-02] MEDS: guaiFENesin (MUCINEX) 600 MG TAB PO SCH ×2 (10:24→20:02)
[2017-11-02] MEDS: VITAMIN D3 1,000 UNITS (CHOLECALCIFEROL) TABLET PO SCH (10:24)
--- NOTE | 2017-11-02 10:43 | Progress Note-Hospitalist ---
Subjective HPI/CC On Admission Date Seen by Provider: Nov 02, 2017 Time Seen by Provider: 10:15 The patient is a 76-year-old white female resident of [facility]. She was sent to the emergency room yesterday by the staff after observing that her O2 saturations had dropped to 60 percent. By her arrival her SaO2 was 89 percent on 4 L per nasal cannula. Her blood pressure was said to be 60 systolic at the care home she reports that she has had chronic respiratory difficulties. She uses oxygen chronically. She is a DO NOT RESUSCITATE status. Subjective/Events-last exam Patient being transferred down to fourth floor today Doing well overall but confusion makes it difficult to ascertain whether she is improved or not Fever noted of 100.3 so we'll need to change Rocephin and Zithromax to Zosyn and check chest x-ray I have consulted Dr. Gilman who has reviewed and assessed everything to be stable. Will DC catheter Review of Systems General: Malaise Cardiovascular: Orthopnea Focused Exam Lactate Level 10/31/17 00:30: Lactic Acid Level 2.16*H 10/31/17 02:35: Lactic Acid Level 2.74*H Objective Exam Vital Signs Vital Signs Date Time Temp Pulse Resp B/P (MAP) Pulse Ox O2 Delivery O2 Flow Rate FiO2 11/02/17 10:40 96 Nasal Cannula 2.00 11/02/17 08:42 100.3 92 24 140/71 (94) 11/02/17 00:00 40 Capillary Refill : Less Than 3 Seconds General Appearance: No Apparent Distress, WD/WN Neck: Normal Inspection, Non Tender Respiratory: Decreased Breath Sounds, Wheezing Neurologic/Psychiatric: Alert, Disoriented Skin: Normal Color, Warm/Dry Results/Procedures Lab Laboratory Tests 11/02/17 03:00 Patient resulted labs reviewed. Assessment/Plan Assessment and Plan Assess & Plan/Chief Complaint Assessment: Pneumonia right upper lobe New fever so changing abx Acute exacerbation of COPD Oxygen dependent 30/01 Dementia Chronic pain on methadone Anxiety Plan: DO NOT RESUSCITATE Change IV antibiotics today Nebulizers IV Solu-Medrol Consult Dr. Gilman in morning BiPAP as needed Move to 4th floor Poor prognosis Critical Care Critical Care: Critically Ill Patient Diagnosis/Problems Diagnosis/Problems (1) Severe sepsis Status: Acute (2) Pneumonia Status: Acute Qualifiers: Pneumonia type: due to unspecified organism Laterality: unspecified laterality Lung location: unspecified part of lung Qualified Codes: J18.9 - Pneumonia, unspecified organism (3) COPD exacerbation Status: Acute (4) Dementia Status: Chronic Qualifiers: Dementia type: unspecified type Dementia behavioral disturbance: with behavioral disturbance Qualified Codes: F03.91 - Unspecified dementia with behavioral disturbance (5) Leukocytosis Status: Acute (6) Chronic pain Status: Chronic Qualifiers: Chronic pain type: chronic pain syndrome Qualified Codes: G89.4 - Chronic pain syndrome (7) Anxiety Status: Chronic Clinical Quality Measures DVT/VTE Risk/Contraindication: Risk Factor Score Per Nursin RFS Level Per Nursing on Admit: 4+=Very High NAVIN DELEON DO Nov 02, 2017 10:43
[2017-11-02] MEDS ORDERED: PIPERACILLIN SODIUM/TAZOBACTAM 4.5 GM in NS (IVPB) 100 ML IV NR (10:45)
--- NOTE | 2017-11-02 11:15 | Diagnostic Imaging Report ---
INDICATION: Fever. Time of exam: 10:47 AM Correlation is made with prior study of 10/31/2017. Heart size is stable. Band of linear parenchymal density in the left perihilar region is stable. There has been some clearing of infiltrate in the left base since prior exam. Right lung appears to be fairly clear. No effusion or pneumothorax is seen. IMPRESSION: Improving left basilar infiltrate when compared with exam 2 days earlier. Dictated by: Dictated on workstation # [id number]
--- NOTE | 2017-11-02 11:59 | Physical Therapy Evaluation ---
PT Evaluation-General Medical Diagnosis Admission Date Oct 31, 2017 at 01:20 Medical Diagnosis: acute respiratory failure Onset Date: Oct 31, 2017 Therapy Diagnosis Therapy Diagnosis: generalized weakness/debility Height/Weight Height (Feet): 5 Height (Inches): 1.00 Weight (Pounds): 149 Weight (Ounces): 0.0 Precautions Precautions/Isolations: Fall Prevention, Standard Precautions Weight Bear Status Right Lower Extremity: Right Full Weight Bearing Left Lower Extremity: Left Full Weight Bearing Referral Physician: Bari Reason for Referral: Evaluation/Treatment Medical History Pertinent Medical History: COPD (O2 dependent), Dementia Additional Medical History opiate dependent Current History EMS from [place] with SOA with SAO2 60's possible sepsis/pneumonia Reviewed History: Yes Social History Home: Halfway Prior/Core FIM Prior Level of Function Functional [place] Measure 0=Not Assessed/NA 4=Minimal Assistance 1=Total Assistance 5=Supervision or Setup 2=Maximal Assistance 6=Modified [place] 3=Moderate Assistance 7=Complete [place] Bed Mobility: 2 Transfers (B,C,W/C) (FIM): 2 Gait: 1 PT Evaluation-Current Subjective Patient agrees to up in chair. She is very confused and verbally aggressive. Pain Numeric Pain Scale: 0-No Pain Location: No Pain Reported Objective Patient Orientation: Confused Problem Solving: Poor Attachments: Oxygen (2L NC), Ross Catheter, IV ROM/Strength ROM Lower Extremities bilateral LE WNL Strength Lower Extremities 3-/5 grossly bilaterally (unable to formally test due to dementia) Integumentary/Posture Integumentary refer to nursing notes Bladder Incontinence: Ross Cath Neuromuscular (Tone, Coordination, Reflexes) diminished coordination due to inactivity Sensory Vision: Wears Glasses Hearing: Functional Sensation Right Lower Extremit: Impaired Sensation Left Lower Extremity: Impaired Transfers Functional [place] Measure 0=Not Assessed/NA 4=Minimal Assistance 1=Total Assistance 5=Supervision or Setup 2=Maximal Assistance 6=Modified [place] 3=Moderate Assistance 7=Complete [place] Transfers (B, C, W/C) (FIM): 1 Scootin Rollin Supine to/from Sit: 1 Sit to/from Stand: 1 bed t/f WC(FIM only if WC use): 1 dependent with all with patient displaying retropulsion in sit and stand with inability to self correct. Patient is very resistive with all movement. Balance Sitting Static: Poor Sitting Dynamic: Poor Standing Static: Poor Standing Dynamic: Poor Assessment/Needs 76 y.o. female, will be seen short term by skilled PT to address functional strength and mobility. Patient has difficulty with following direction and is very verbally aggressive. During treatment, patient had increase difficulty breathing with SAO2 dropping to 81%/. RN notified and placed BiPap on patient up in recliner. Rehab Potential: Guarded PT Shelter Goals Shelter Goals PT Clinical Project Manager Goals Time Frame: November 10, 2017 Transfers (B,C,W/C) (FIM): 4 Gait (FIM): 1 Gait distance (FIM): 1=up to 49 ft Distance: 10' Gait Level of Assist: 3 Gait Assistive Device: FWW PT Plan Problem List Problem List: Activity Tolerance, Functional Strength, Safety, Balance, Gait, Transfer, Bed Mobility Treatment/Plan Treatment Plan: Continue Plan of Care Treatment Plan: Bed Mobility, Education, Functional Activity Jessica, Functional Strength, Gait, Safety, Therapeutic Exercise, Transfers Treatment Duration: November 10, 2017 Frequency: 5 times per week Estimated Hrs Per Day: .25 hour per day Patient and/or Family Agrees t: Yes Safety Risks/Education Patient Education: Safety Issues Teaching Recipient: Patient Teaching Methods: Discussion Response to Teaching: Unable to Comprehend, Reinforcement Needed Discharge Recommendations Therapy D/C Recommendations: Halfway Placement Time/GCodes Time In: 1130 Time Out: 1145 Total Billed Treatment Time: 15 Total Billed Treatment 1 visit EVModC 15 min G Codes Necessary: CIRILO Post PT Nov 02, 2017 11:59
[2017-11-02] MEDS: PIPERACILLIN SODIUM/TAZOBACTAM 4.5 GM in NS (IVPB) 100 ML IV SCH (17:09)
[2017-11-02] MEDS: traZODone 100 MG (DESYREL) TAB PO SCH (20:03)
[2017-11-03] MEDS: PIPERACILLIN SODIUM/TAZOBACTAM 4.5 GM in NS (IVPB) 100 ML IV SCH ×3 (00:39→15:57)
[2017-11-03] MEDS: methylPREDNISolone 125 MG (Solu-MEDROL) VIAL IVP SCH ×2 (00:39→06:16)
[2017-11-03] MEDS: RT-ALBUTEROL/IPRATROPIUM 3 ML (DUONEB) VIAL INH SCH ×6 (02:37→23:05)
[2017-11-03] MEDS: LORazepam 0.5 MG (ATIVAN) TABLET PO SCH ×3 (02:47→16:47)
[2017-11-03 03:40] LABS: BASOPHILS % (AUTO) 0 % (0-10); EOSINOPHILS % (AUTO) 0 % (0-10); HEMATOCRIT 35 % (35-52); HEMOGLOBIN 10.7 G/DL (11.5-16.0); LYMPHOCYTES # (AUTO) 0.6 X 10^3 (1.0-4.0); LYMPHOCYTES % (AUTO) 5 % (12-44); MEAN CORPUSCULAR HEMOGLOBIN 29 PG (25-34); MEAN CORPUSCULAR HGB CONC 30 G/DL (32-36); MEAN CORPUSCULAR VOLUME 97 FL (80-99); MEAN PLATELET VOLUME 11.6 FL (7.4-10.4); MONOCYTES # (AUTO) 0.3 X 10^3 (0.0-1.0); MONOCYTES % (AUTO) 3 % (0-12); NEUTROPHILS # (AUTO) 9.6 X 10^3 (1.8-7.8); NEUTROPHILS % (AUTO) 92 % (42-75); PLATELET COUNT 212 10^3/uL (130-400); RED BLOOD COUNT 3.64 10^6/uL (4.35-5.85); RED CELL DISTRIBUTION WIDTH 14.4 % (10.0-14.5); WHITE BLOOD COUNT 10.5 10^3/uL (4.3-11.0)
[2017-11-03 03:43] VITALS: BP 162/78
[2017-11-03 04:15] LABS: ALANINE AMINOTRANSFERASE 16 U/L (0-55); ALBUMIN 3.4 GM/DL (3.2-4.5); ALKALINE PHOSPHATASE 59 U/L (40-136); BILIRUBIN,TOTAL 0.4 MG/DL (0.1-1.0); BUN/CREATININE RATIO 22; CALCIUM 8.7 MG/DL (8.5-10.1); CARBON DIOXIDE 28 MMOL/L (21-32); CHLORIDE 103 MMOL/L (98-107); CREATININE SERUM 0.68 MG/DL (0.60-1.30); GFR ESTIMATED > 60; GLUCOSE 122 MG/DL (70-105); PHOSPHORUS 3.5 MG/DL (2.3-4.7); POTASSIUM 3.6 MMOL/L (3.6-5.0); SODIUM 142 MMOL/L (135-145)
[2017-11-03] MEDS: METHADONE 10 MG (DOLOPHINE) TAB PO SCH ×3 (06:16→20:56)
[2017-11-03] MEDS: TROSPIUM 20 MG (SANCTURA) TAB PO SCH ×2 (06:17→16:47)
[2017-11-03] MEDS: RT-ADVAIR HFA 115/21 MCG PER PUFF IH SCH ×2 (07:19→19:14)
--- NOTE | 2017-11-03 07:27 | Pulmonary Progress Note ---
Subjective Time Seen by Provider: 07:31 Subjective/Events-last exam No complications noted. Exam Exam Vital Signs Date Time Temp Pulse Resp B/P (MAP) Pulse Ox O2 Delivery O2 Flow Rate FiO2 11/03/17 04:00 Nasal Cannula 3.00 11/03/17 03:43 97.6 78 20 162/78 (106) 98 Nasal Cannula 2.00 11/03/17 02:37 99 Nasal Cannula 3.00 11/03/17 01:00 71 11/03/17 00:00 Nasal Cannula 3.00 11/02/17 23:47 97.3 73 22 152/69 (96) 99 Nasal Cannula 3.00 11/02/17 23:08 97 Nasal Cannula 3.00 11/02/17 20:10 98.5 108 22 106/88 (94) 93 Nasal Cannula 3.00 11/02/17 20:00 Nasal Cannula 3.00 11/02/17 20:00 Nasal Cannula 3.00 11/02/17 19:21 94 Nasal Cannula 2.00 11/02/17 17:00 98.5 93 24 170/90 (116) 95 NIV Bilevel 40.00 11/02/17 17:00 Nasal Cannula 3.00 11/02/17 15:31 97 21 40.00 11/02/17 15:09 98 Nasal Cannula 2.00 11/02/17 11:57 Nasal Cannula 3.00 11/02/17 11:57 97.7 91 22 159/84 (109) 99 NIV Bilevel 40.00 11/02/17 10:40 96 Nasal Cannula 2.00 11/02/17 08:42 Nasal Cannula 3.00 11/02/17 08:42 Nasal Cannula 3.00 11/02/17 08:42 100.3 92 24 140/71 (94) 98 Nasal Cannula 3.00 I & O 11/03/17 07:00 Intake Total 1800 ml Output Total 2600 ml Balance -800 ml General Appearance: No Apparent Distress, WD/WN HEENT: Normal ENT Inspection Neck: Normal Inspection, Non Tender Respiratory: Decreased Breath Sounds, Wheezing Cardiovascular: Regular Rate, Rhythm, No Edema Capillary Refill: Less Than 3 Seconds Gastrointestinal: soft Extremity: Normal Capillary Refill, Normal Range of Motion, Non Tender, No Calf Tenderness Neurologic/Psychiatric: Alert, Disoriented Skin: Normal Color, Warm/Dry Lymphatic: No Adenopathy Results Lab Laboratory Tests 11/02/17 03:00 11/03/17 03:05 Assessment/Plan Assessment/Plan Severe Sepsis With Pneumonia -Zosyn -Cardoza cultures pending -IVF Acute on chronic respiratory failure -Pt used BIPAP last night. -BiPAP PRN COPDAE - Solumedrol to 40 Q6 -SVNS -PT is a DNR Dementia/debility from [place] [id number] Critical Care: Critically Ill Patient GIO JEAN-BAPTISTE DO Nov 03, 2017 07:27
[2017-11-03] MEDS ORDERED: FUROSEMIDE 40 MG/4 ML INJ (LASIX) IVP NR (07:30)
[2017-11-03] MEDS ORDERED: KCL 10 MEQ TAB (MICRO K) PO NR (07:30)
[2017-11-03 07:33] VITALS: BP 137/72
--- NOTE | 2017-11-03 07:35 | Diagnostic Imaging Report ---
INDICATION: Shortness of air. COMPARISON: 11/02/2017. FINDINGS: Single frontal radiographic view of the chest was obtained and continues to demonstrate mild asymmetric prominent interstitial infiltrates within the left lower lung field. There is background of moderate COPD. Overall, aeration has not significantly changed. There is no large effusion or pneumothorax. Cardiac silhouette and pulmonary vasculature within normal limits. Bony structures show no gross acute abnormalities. IMPRESSION: Stable exam of the chest as described above. Dictated by: Dictated on workstation # [id number]
[2017-11-03] MEDS: HYDROcodone/APAP 10 MG/325 MG (LORTAB) TAB PO SCH ×2 (08:53→20:55)
[2017-11-03] MEDS: SERTRALINE 50 MG (ZOLOFT) TABLET PO SCH (08:53)
[2017-11-03] MEDS: VITAMIN D3 1,000 UNITS (CHOLECALCIFEROL) TABLET PO SCH (08:53)
[2017-11-03] MEDS: BACLOFEN 10 MG (LIORESAL) TAB PO SCH ×2 (08:53→20:56)
[2017-11-03] MEDS: guaiFENesin (MUCINEX) 600 MG TAB PO SCH ×2 (08:54→20:56)
--- NOTE | 2017-11-03 10:12 | Physical Therapy Daily Note ---
PT Daily Note-Current Subjective Patient is more cooperative today. Pain Numeric Pain Scale: 0-No Pain Location: No Pain Reported Mental Status Patient Orientation: Confused Attachments: Oxygen, Ross Catheter, IV Transfers Functional [place] Measure 0=Not Assessed/NA 4=Minimal Assistance 1=Total Assistance 5=Supervision or Setup 2=Maximal Assistance 6=Modified [place] 3=Moderate Assistance 7=Complete IndependenceIRFPAI Quality Coding Scale 6 Independent with activity with or without an assistive device 5 Patient requires set up or clean up by helper. Patient completes activity by themselves 4 Supervision or touching assist (CGA). [place] provide cues , steadying assist 3 The helper provides less than half the effort to complete the activity 2 The helper provides more than half the effort to complete the activity 1 Dependent. The helper does all the effort to complete an activity 7 Patient refused to complete or attempt activity 9 The patient did not perform the activity before the current illness or injury 88 Not attempted due to Medical conditions or safety concerns Transfers (B, C, W/C) (FIM): 2 Scootin Rollin Supine to/from Sit: 2 Sit to/from Stand: 4 Bed to/from Chair: 4 improved sit to stand transfers CGA x 3 sets Weight Bearing Right Lower Extremity: Right Full Weight Bearing Left Lower Extremity: Left Full Weight Bearing Assessment Patient tolerated bed mobility and transfers without respiratory difficulty. RN present. Patient is up in recliner with call light in hand. PT Line Out Man Goals Line Out Man Goals PT Line Out Man Goals Time Frame: November 10, 2017 Transfers (B,C,W/C) (FIM): 4 Gait (FIM): 1 Gait distance (FIM): 1=up to 49 ft Distance: 10' Gait Level of Assist: 3 Gait Assistive Device: FWW PT Plan Treatment/Plan Treatment Plan: Continue Plan of Care Treatment Plan: Bed Mobility, Education, Functional Activity Jessica, Functional Strength, Gait, Safety, Therapeutic Exercise, Transfers Treatment Duration: November 10, 2017 Frequency: 5 times per week Estimated Hrs Per Day: .25 hour per day Patient and/or Family Agrees t: Yes Time/GCodes Time In: 931 Time Out: 941 Total Billed Treatment Time: 10 Total Billed Treatment 1 visit FA 10 min CIRILO LAKE PT Nov 03, 2017 10:12
[2017-11-03 11:32] VITALS: BP 129/51
[2017-11-03] MEDS: LACTULOSE SYRUP 10GM/15ML (ENULOSE) 30ML UDC PO SCH ×2 (11:58→20:59)
[2017-11-03] MEDS: POLYETHYLENE GLYCOL 17 GM (MIRALAX) PACK PO SCH ×2 (11:58→20:59)
[2017-11-03] MEDS: DOCUSATE SODIUM 100 MG (COLACE) CAP PO SCH ×2 (11:59→20:56)
[2017-11-03] MEDS: SENNA W/DOCUSATE (SENOKOT S) TABLET PO SCH ×2 (11:59→21:13)
--- NOTE | 2017-11-03 12:07 | Progress Note-Hospitalist ---
Subjective HPI/CC On Admission Date Seen by Provider: Nov 03, 2017 Time Seen by Provider: 11:00 The patient is a 76-year-old white female resident of [facility]. She was sent to the emergency room yesterday by the staff after observing that her O2 saturations had dropped to 60 percent. By her arrival her SaO2 was 89 percent on 4 L per nasal cannula. [facility] blood [facility] she reports that she has had chronic respiratory difficulties. She uses oxygen chronically. She is a DO NOT RESUSCITATE status. Subjective/Events-last exam Patient's sleeping in chair and during exam she did not awaken Overall prognosis extremely poor Did not desaturate by much when she got up to the commode Needs a bowel movement so we have ordered an aggressive bowel regimen Will discontinue catheter Will transfer to fourth floor Normal white count noted and no fever Volume overload appears to have resolved from Lasix administration Review of Systems Gastrointestinal: Constipation Objective Exam Vital Signs Vital Signs Date Time Temp Pulse Resp B/P (MAP) Pulse Ox O2 Delivery O2 Flow Rate FiO2 11/03/17 11:32 97.3 77 20 129/51 (77) 97 Nasal Cannula 3.00 11/02/17 00:00 40 Capillary Refill : Less Than 3 Seconds General Appearance: No Apparent Distress, WD/WN, Chronically ill, Other Respiratory: Crackles, Decreased Breath Sounds Cardiovascular: Regular Rate, Rhythm, No Edema Neurologic/Psychiatric: Disoriented Results/Procedures Lab Laboratory Tests 11/03/17 03:05 Patient resulted labs reviewed. Assessment/Plan Assessment and Plan Assess & Plan/Chief Complaint Assessment: Pneumonia right upper lobe s/p new fever yesterday so changed abx to Zosyn Acute exacerbation of COPD remains on steroids IV due to the severity Oxygen dependent 30/01 chronic Dementia severe Chronic pain on methadone Anxiety Plan: DO NOT RESUSCITATE Maintain changed IV antibiotic today Nebulizers IV Solu-Medrol BiPAP as needed Move to 4th floor Poor prognosis DC catheter Critical Care Critical Care: Critically Ill Patient Diagnosis/Problems Diagnosis/Problems (1) Severe sepsis Status: Resolved (2) Pneumonia Status: Acute Qualifiers: Pneumonia type: due to unspecified organism Laterality: unspecified laterality Lung location: unspecified part of lung Qualified Codes: J18.9 - Pneumonia, unspecified organism (3) COPD exacerbation Status: Acute (4) Dementia Status: Chronic Qualifiers: Dementia type: unspecified type Dementia behavioral disturbance: with behavioral disturbance Qualified Codes: F03.91 - Unspecified dementia with behavioral disturbance (5) Leukocytosis Status: Resolved (6) Chronic pain Status: Chronic Qualifiers: Chronic pain type: chronic pain syndrome Qualified Codes: G89.4 - Chronic pain syndrome (7) Anxiety Status: Chronic (8) Debility Status: Chronic (9) Poor prognosis Status: Acute Clinical Quality Measures DVT/VTE Risk/Contraindication: Risk Factor Score Per Nursin RFS Level Per Nursing on Admit: 4+=Very High NAVIN DELEON DO Nov 03, 2017 12:07
[2017-11-03] MEDS: methylPREDNISolone 40 MG/ML (Solu-MEDROL) VIAL IV SCH ×2 (13:02→15:59)
[2017-11-03 14:30] VITALS: BP 129/78
[2017-11-03 15:40] VITALS: BP 115/73
[2017-11-03 19:10] VITALS: BP 142/68
[2017-11-03] MEDS: traZODone 100 MG (DESYREL) TAB PO SCH (20:56)
[2017-11-04] VITALS (7 sets, daily range): BP systolic 140–178; BP diastolic 68–84
[2017-11-04] MEDS: methylPREDNISolone 40 MG/ML (Solu-MEDROL) VIAL IV SCH ×4 (00:16→18:25)
[2017-11-04] MEDS: PIPERACILLIN SODIUM/TAZOBACTAM 4.5 GM in NS (IVPB) 100 ML IV SCH ×3 (00:17→16:26)
[2017-11-04] MEDS: LORazepam 0.5 MG (ATIVAN) TABLET PO SCH ×3 (01:42→18:25)
[2017-11-04] MEDS: RT-ALBUTEROL/IPRATROPIUM 3 ML (DUONEB) VIAL INH SCH ×6 (03:18→22:54)
[2017-11-04 05:39] LABS: BASOPHILS % (AUTO) 0 % (0-10); EOSINOPHILS % (AUTO) 0 % (0-10); HEMATOCRIT 37 % (35-52); HEMOGLOBIN 11.5 G/DL (11.5-16.0); LYMPHOCYTES # (AUTO) 0.6 X 10^3 (1.0-4.0); LYMPHOCYTES % (AUTO) 5 % (12-44); MEAN CORPUSCULAR HEMOGLOBIN 30 PG (25-34); MEAN CORPUSCULAR HGB CONC 31 G/DL (32-36); MEAN CORPUSCULAR VOLUME 97 FL (80-99); MEAN PLATELET VOLUME 11.3 FL (7.4-10.4); MONOCYTES # (AUTO) 0.6 X 10^3 (0.0-1.0); MONOCYTES % (AUTO) 4 % (0-12); NEUTROPHILS # (AUTO) 12.1 X 10^3 (1.8-7.8); NEUTROPHILS % (AUTO) 91 % (42-75); PLATELET COUNT 259 10^3/uL (130-400); RED BLOOD COUNT 3.83 10^6/uL (4.35-5.85); RED CELL DISTRIBUTION WIDTH 14.4 % (10.0-14.5); WHITE BLOOD COUNT 13.4 10^3/uL (4.3-11.0)
[2017-11-04] MEDS: METHADONE 10 MG (DOLOPHINE) TAB PO SCH ×3 (05:40→20:43)
[2017-11-04] MEDS: TROSPIUM 20 MG (SANCTURA) TAB PO SCH ×2 (05:40→16:26)
[2017-11-04 06:10] LABS: ALANINE AMINOTRANSFERASE 22 U/L (0-55); ALBUMIN 3.5 GM/DL (3.2-4.5); ALKALINE PHOSPHATASE 62 U/L (40-136); BILIRUBIN,TOTAL 0.6 MG/DL (0.1-1.0); BUN/CREATININE RATIO 28; CARBON DIOXIDE 29 MMOL/L (21-32); CHLORIDE 100 MMOL/L (98-107); CREATININE SERUM 0.71 MG/DL (0.60-1.30); GFR ESTIMATED > 60; GLUCOSE 110 MG/DL (70-105); POTASSIUM 3.6 MMOL/L (3.6-5.0); SODIUM 140 MMOL/L (135-145); TOTAL PROTEIN 7.5 GM/DL (6.4-8.2)
[2017-11-04] MEDS: RT-ADVAIR HFA 115/21 MCG PER PUFF IH SCH ×2 (07:18→18:51)
[2017-11-04] MEDS: SENNA W/DOCUSATE (SENOKOT S) TABLET PO SCH ×2 (08:58→20:52)
[2017-11-04] MEDS: LACTULOSE SYRUP 10GM/15ML (ENULOSE) 30ML UDC PO SCH ×2 (08:58→20:52)
[2017-11-04] MEDS: DOCUSATE SODIUM 100 MG (COLACE) CAP PO SCH ×2 (08:59→20:51)
[2017-11-04] MEDS: BACLOFEN 10 MG (LIORESAL) TAB PO SCH ×2 (09:06→20:43)
[2017-11-04] MEDS: HYDROcodone/APAP 10 MG/325 MG (LORTAB) TAB PO SCH ×2 (09:06→20:43)
[2017-11-04] MEDS: SERTRALINE 50 MG (ZOLOFT) TABLET PO SCH (09:07)
[2017-11-04] MEDS: POLYETHYLENE GLYCOL 17 GM (MIRALAX) PACK PO SCH ×2 (09:07→20:52)
[2017-11-04] MEDS: VITAMIN D3 1,000 UNITS (CHOLECALCIFEROL) TABLET PO SCH (09:07)
[2017-11-04] MEDS: guaiFENesin (MUCINEX) 600 MG TAB PO SCH ×2 (09:07→20:43)
--- NOTE | 2017-11-04 11:44 | Progress Note-Hospitalist ---
Subjective HPI/CC On Admission Date Seen by Provider: Nov 04, 2017 Time Seen by Provider: 11:00 The patient is a 76-year-old white female resident of [facility]. She was sent to the emergency room yesterday by the staff after observing that her O2 saturations had dropped to 60 percent. By her arrival her SaO2 was 89 percent on 4 L per nasal cannula. Her blood pressure was said to be 60 systolic at the half-way she reports that she has had chronic respiratory difficulties. She uses oxygen chronically. She is a DO NOT RESUSCITATE status. Subjective/Events-last exam this is the patient that requires immediate medical assistant cardiology to get up and have a bowel movement. Otherwise she is without complaint. Review of Systems Gastrointestinal: Constipation Genitourinary: Incontinence Objective Exam Vital Signs Vital Signs Date Time Temp Pulse Resp B/P (MAP) Pulse Ox O2 Delivery O2 Flow Rate FiO2 11/04/17 10:29 95 Nasal Cannula 4.00 11/04/17 08:00 97.9 91 18 166/72 (103) 11/02/17 00:00 40 Capillary Refill : Less Than 3 Seconds General Appearance: Moderate Distress HEENT: Normal ENT Inspection Neck: Supple Respiratory: Crackles Cardiovascular: Regular Rate, Rhythm, No Gallop, Systolic Murmur Gastrointestinal: Normal Bowel Sounds, Non Tender, Soft Rectal: Deferred Extremity: Normal Range of Motion, No Calf Tenderness Neurologic/Psychiatric: Alert, Disoriented Skin: Normal Color, Warm/Dry Results/Procedures Lab Laboratory Tests 11/04/17 04:51 Patient resulted labs reviewed. Assessment/Plan Assessment and Plan Assess & Plan/Chief Complaint . Pneumonia on Zosyn Mild dementia with delirium Constipation COPD on Solu-Medrol Probable discharge in 2 days Diagnosis/Problems Diagnosis/Problems (1) Altered mental status Status: Acute Qualifiers: Altered mental status type: delirium Qualified Codes: R41.0 - Disorientation, unspecified (2) Pneumonia Status: Acute Qualifiers: Pneumonia type: due to unspecified organism Laterality: unspecified laterality Lung location: unspecified part of lung Qualified Codes: J18.9 - Pneumonia, unspecified organism (3) Dementia Status: Chronic Qualifiers: Dementia type: unspecified type Dementia behavioral disturbance: with behavioral disturbance Qualified Codes: F03.91 - Unspecified dementia with behavioral disturbance (4) Acute on chronic respiratory failure Status: Acute Clinical Quality Measures DVT/VTE Risk/Contraindication: Risk Factor Score Per Nursin RFS Level Per Nursing on Admit: 4+=Very High KRYSTIAN ROSARIO MD Nov 04, 2017 11:44
[2017-11-04] MEDS: traZODone 100 MG (DESYREL) TAB PO SCH (20:43)
[2017-11-05] MEDS: methylPREDNISolone 40 MG/ML (Solu-MEDROL) VIAL IV SCH ×2 (00:02→06:08)
[2017-11-05] MEDS: PIPERACILLIN SODIUM/TAZOBACTAM 4.5 GM in NS (IVPB) 100 ML IV SCH ×3 (00:03→16:22)
[2017-11-05] MEDS: LORazepam 0.5 MG (ATIVAN) TABLET PO SCH ×3 (02:19→17:01)
[2017-11-05] MEDS: RT-ALBUTEROL/IPRATROPIUM 3 ML (DUONEB) VIAL INH SCH ×6 (02:50→22:46)
[2017-11-05 05:33] LABS: BASOPHILS # (AUTO) 0.1 10^3/uL (0.0-0.1); BASOPHILS % (AUTO) 1 % (0-10); EOSINOPHILS % (AUTO) 0 % (0-10); HEMATOCRIT 37 % (35-52); HEMOGLOBIN 11.6 G/DL (11.5-16.0); LYMPHOCYTES # (AUTO) 0.7 X 10^3 (1.0-4.0); LYMPHOCYTES % (AUTO) 7 % (12-44); MEAN CORPUSCULAR HEMOGLOBIN 30 PG (25-34); MEAN CORPUSCULAR HGB CONC 31 G/DL (32-36); MEAN CORPUSCULAR VOLUME 96 FL (80-99); MEAN PLATELET VOLUME 10.9 FL (7.4-10.4); MONOCYTES # (AUTO) 0.4 X 10^3 (0.0-1.0); MONOCYTES % (AUTO) 4 % (0-12); NEUTROPHILS # (AUTO) 9.2 X 10^3 (1.8-7.8); NEUTROPHILS % (AUTO) 89 % (42-75); PLATELET COUNT 247 10^3/uL (130-400); RED BLOOD COUNT 3.88 10^6/uL (4.35-5.85); WHITE BLOOD COUNT 10.4 10^3/uL (4.3-11.0)
[2017-11-05 05:49] LABS: ALANINE AMINOTRANSFERASE 20 U/L (0-55); ALBUMIN 3.5 GM/DL (3.2-4.5); ALKALINE PHOSPHATASE 64 U/L (40-136); BILIRUBIN,TOTAL 0.4 MG/DL (0.1-1.0); BUN/CREATININE RATIO 23; CALCIUM 8.8 MG/DL (8.5-10.1); CARBON DIOXIDE 31 MMOL/L (21-32); CHLORIDE 100 MMOL/L (98-107); CREATININE SERUM 0.66 MG/DL (0.60-1.30); GFR ESTIMATED > 60; GLUCOSE 133 MG/DL (70-105); POTASSIUM 3.4 MMOL/L (3.6-5.0); SODIUM 142 MMOL/L (135-145)
[2017-11-05] MEDS: METHADONE 10 MG (DOLOPHINE) TAB PO SCH ×3 (06:08→22:12)
[2017-11-05] MEDS: TROSPIUM 20 MG (SANCTURA) TAB PO SCH ×2 (06:08→16:22)
[2017-11-05] MEDS: RT-ADVAIR HFA 115/21 MCG PER PUFF IH SCH ×2 (06:51→18:20)
[2017-11-05] MEDS: SENNA W/DOCUSATE (SENOKOT S) TABLET PO SCH ×2 (08:15→20:02)
[2017-11-05] MEDS: DOCUSATE SODIUM 100 MG (COLACE) CAP PO SCH ×2 (08:15→20:02)
[2017-11-05] MEDS: POLYETHYLENE GLYCOL 17 GM (MIRALAX) PACK PO SCH ×2 (08:15→20:02)
[2017-11-05] MEDS: LACTULOSE SYRUP 10GM/15ML (ENULOSE) 30ML UDC PO SCH ×2 (08:15→20:02)
[2017-11-05 08:30] VITALS: BP 144/85
[2017-11-05] MEDS: HYDROcodone/APAP 10 MG/325 MG (LORTAB) TAB PO SCH ×2 (08:48→20:01)
[2017-11-05] MEDS: SERTRALINE 50 MG (ZOLOFT) TABLET PO SCH (08:48)
[2017-11-05] MEDS: VITAMIN D3 1,000 UNITS (CHOLECALCIFEROL) TABLET PO SCH (08:48)
[2017-11-05] MEDS: guaiFENesin (MUCINEX) 600 MG TAB PO SCH ×2 (08:49→20:01)
[2017-11-05] MEDS: BACLOFEN 10 MG (LIORESAL) TAB PO SCH ×2 (08:49→20:01)
[2017-11-05 12:00] VITALS: BP 148/70
--- NOTE | 2017-11-05 12:06 | Progress Note-Hospitalist ---
Subjective HPI/CC On Admission Date Seen by Provider: Nov 05, 2017 Time Seen by Provider: 11:15 The patient is a 76-year-old white female resident of [facility]. She was sent to the emergency room yesterday by the staff after observing that her O2 saturations had dropped to 60 percent. By her arrival her SaO2 was 89 percent on 4 L per nasal cannula. Her blood pressure was said to be 60 systolic at the assisted she reports that she has had chronic respiratory difficulties. She uses oxygen chronically. She is a DO NOT RESUSCITATE status. Subjective/Events-last exam Patient is sitting up in a chair has no complaints other than the fact that she doesn't like the cartoons on the TV currently. She is asking when she gets to go home. She asks my name several times. She has for some Listerine for her mouthwash. She denies having any complaints when asked. Objective Exam Vital Signs Vital Signs Date Time Temp Pulse Resp B/P (MAP) Pulse Ox O2 Delivery O2 Flow Rate FiO2 11/05/17 10:17 94 Nasal Cannula 1.50 11/05/17 08:30 97.3 102 22 144/85 (104) 11/02/17 00:00 40 Capillary Refill : Less Than 3 Seconds General Appearance: Chronically ill HEENT: Other Neck: Limited Range of Motion Respiratory: No Accessory Muscle Use, No Respiratory Distress, Crackles, Decreased Breath Sounds Cardiovascular: Regular Rate, Rhythm, No Edema, No Gallop, Systolic Murmur Gastrointestinal: Normal Bowel Sounds, Non Tender, Soft Rectal: Deferred Extremity: Normal Inspection, No Calf Tenderness Neurologic/Psychiatric: Alert, Normal Mood/Affect, Disoriented Skin: Pallor Lymphatic: No Adenopathy Results/Procedures Lab Laboratory Tests 11/05/17 05:15 Patient resulted labs reviewed. Assessment/Plan Assessment and Plan Assess & Plan/Chief Complaint . Pneumonia on Zosyn-day 6 facility acquired, discharge in a.m., chest x-ray has been stable Mild dementia with delirium Constipation-resolved COPD we'll change to by mouth prednisone Hypokalemia Will replace Chronic pain syndrome on methadone and baclofen. Diagnosis/Problems Diagnosis/Problems (1) Altered mental status Status: Acute Qualifiers: Altered mental status type: delirium Qualified Codes: R41.0 - Disorientation, unspecified (2) Pneumonia Status: Acute Qualifiers: Pneumonia type: due to unspecified organism Laterality: unspecified laterality Lung location: unspecified part of lung Qualified Codes: J18.9 - Pneumonia, unspecified organism (3) Dementia Status: Chronic Qualifiers: Dementia type: unspecified type Dementia behavioral disturbance: with behavioral disturbance Qualified Codes: F03.91 - Unspecified dementia with behavioral disturbance (4) Acute on chronic respiratory failure Status: Acute Clinical Quality Measures DVT/VTE Risk/Contraindication: Risk Factor Score Per Nursin RFS Level Per Nursing on Admit: 4+=Very High KRYSTIAN ROSARIO MD Nov 05, 2017 12:06 pm
[2017-11-05 16:26] VITALS: BP 138/76
[2017-11-05] MEDS ORDERED: predniSONE 20 MG TAB PO SCH (17:00)
[2017-11-05] MEDS ORDERED: KCL 10 MEQ TAB (MICRO K) PO SCH (17:00)
[2017-11-05] MEDS: traZODone 100 MG (DESYREL) TAB PO SCH (20:01)
[2017-11-06] VITALS: BP 145/82
[2017-11-06] MEDS: PIPERACILLIN SODIUM/TAZOBACTAM 4.5 GM in NS (IVPB) 100 ML IV SCH ×2 (00:21→09:51)
[2017-11-06] MEDS: RT-ALBUTEROL/IPRATROPIUM 3 ML (DUONEB) VIAL INH SCH ×3 (02:37→10:30)
[2017-11-06] MEDS: LORazepam 0.5 MG (ATIVAN) TABLET PO SCH ×3 (02:46→09:51)
[2017-11-06] MEDS: TROSPIUM 20 MG (SANCTURA) TAB PO SCH (05:37)
[2017-11-06] MEDS: METHADONE 10 MG (DOLOPHINE) TAB PO SCH ×2 (05:37→14:14)
[2017-11-06 05:48] LABS: BASOPHILS % (AUTO) 0 % (0-10); EOSINOPHILS % (AUTO) 0 % (0-10); HEMATOCRIT 35 % (35-52); LYMPHOCYTES % (AUTO) 9 % (12-44); MEAN CORPUSCULAR HEMOGLOBIN 31 PG (25-34); MEAN CORPUSCULAR HGB CONC 32 G/DL (32-36); MEAN CORPUSCULAR VOLUME 97 FL (80-99); MEAN PLATELET VOLUME 11.1 FL (7.4-10.4); MONOCYTES # (AUTO) 0.6 X 10^3 (0.0-1.0); NEUTROPHILS # (AUTO) 10.4 X 10^3 (1.8-7.8); PLATELET COUNT 230 10^3/uL (130-400); RED BLOOD COUNT 3.56 10^6/uL (4.35-5.85); RED CELL DISTRIBUTION WIDTH 14.5 % (10.0-14.5); WHITE BLOOD COUNT 12.1 10^3/uL (4.3-11.0)
[2017-11-06 05:54] LABS: MONOCYTES % (AUTO) 6 % (0-12); NEUTROPHILS % (AUTO) 85 % (42-75)
--- NOTE | 2017-11-06 06:05 | Pulmonary Progress Note ---
Subjective Time Seen by Provider: 06:18 Subjective/Events-last exam No complications noted. Exam Exam Vital Signs Date Time Temp Pulse Resp B/P (MAP) Pulse Ox O2 Delivery O2 Flow Rate FiO2 11/06/17 02:38 95 Nasal Cannula 3.00 11/06/17 00:00 98.4 80 8 145/82 (103) 97 Nasal Cannula 3.00 11/05/17 22:46 97 Nasal Cannula 3.00 11/05/17 21:00 Nasal Cannula 3.00 11/05/17 18:29 94 Nasal Cannula 11/05/17 18:20 93 Nasal Cannula 3.00 11/05/17 16:26 97.6 92 18 138/76 (96) 93 Nasal Cannula 3.00 11/05/17 14:43 93 Nasal Cannula 3.00 11/05/17 12:00 97.9 80 20 148/70 (96) 93 Nasal Cannula 2.00 11/05/17 10:17 94 Nasal Cannula 1.50 11/05/17 09:05 Nasal Cannula 2.00 11/05/17 08:30 97.3 102 22 144/85 (104) 96 Nasal Cannula 2.00 11/05/17 06:51 95 Nasal Cannula 2.50 I & O 11/06/17 07:00 Intake Total 1750 ml Output Total 2450 ml Balance -700 ml General Appearance: Chronically ill HEENT: Other Neck: Limited Range of Motion Respiratory: No Accessory Muscle Use, No Respiratory Distress, Crackles, Decreased Breath Sounds Cardiovascular: Regular Rate, Rhythm, No Edema, No Gallop, Systolic Murmur Capillary Refill: Less Than 3 Seconds Gastrointestinal: soft Extremity: Normal Inspection, No Calf Tenderness Neurologic/Psychiatric: Alert, Normal Mood/Affect, Disoriented Skin: Pallor Lymphatic: No Adenopathy Results Lab Laboratory Tests 11/05/17 05:15 11/06/17 05:35 Assessment/Plan Assessment/Plan Severe Sepsis With Pneumonia -Zosyn d/c after today -Cardoza cultures negative Acute on chronic respiratory failure -Pt used BIPAP last night. -BiPAP PRN COPDAE -SVNS -prednisone taper -PT is a DNR Dementia/debility from [facility] PT is ok from pulmonary standpoint for discharge. GIO JEAN-BAPTISTE DO Nov 06, 2017 06:05
[2017-11-06 06:16] LABS: ALANINE AMINOTRANSFERASE 21 U/L (0-55); ALBUMIN 3.2 GM/DL (3.2-4.5); ALKALINE PHOSPHATASE 58 U/L (40-136); BILIRUBIN,TOTAL 0.4 MG/DL (0.1-1.0); BUN/CREATININE RATIO 25; CALCIUM 8.4 MG/DL (8.5-10.1); CARBON DIOXIDE 31 MMOL/L (21-32); CHLORIDE 101 MMOL/L (98-107); CREATININE SERUM 0.65 MG/DL (0.60-1.30); GFR ESTIMATED > 60; GLUCOSE 95 MG/DL (70-105); SODIUM 141 MMOL/L (135-145); TOTAL PROTEIN 6.6 GM/DL (6.4-8.2)
[2017-11-06] MEDS ORDERED: KCL 10 MEQ TAB (MICRO K) PO ONE (06:30)
[2017-11-06] MEDS: RT-ADVAIR HFA 115/21 MCG PER PUFF IH SCH (07:17)
[2017-11-06 08:30] VITALS: BP 110/80
[2017-11-06] MEDS: VITAMIN D3 1,000 UNITS (CHOLECALCIFEROL) TABLET PO SCH (09:51)
[2017-11-06] MEDS: BACLOFEN 10 MG (LIORESAL) TAB PO SCH (09:51)
[2017-11-06] MEDS: guaiFENesin (MUCINEX) 600 MG TAB PO SCH (09:51)
[2017-11-06] MEDS: SERTRALINE 50 MG (ZOLOFT) TABLET PO SCH (09:51)
[2017-11-06] MEDS: LACTULOSE SYRUP 10GM/15ML (ENULOSE) 30ML UDC PO SCH (09:52)
[2017-11-06] MEDS: DOCUSATE SODIUM 100 MG (COLACE) CAP PO SCH (09:52)
[2017-11-06] MEDS: HYDROcodone/APAP 10 MG/325 MG (LORTAB) TAB PO SCH (09:52)
[2017-11-06] MEDS: SENNA W/DOCUSATE (SENOKOT S) TABLET PO SCH (09:53)
[2017-11-06] MEDS: POLYETHYLENE GLYCOL 17 GM (MIRALAX) PACK PO SCH (09:53)
--- NOTE | 2017-11-06 12:56 | Progress Note-Hospitalist ---
Progress Note Progress Notes/Assess & Plan Date Seen 11/06/17 Time Seen by Provider: 12:51 Assessment & Plan The patient is sitting in her chair at bedside. She is sound asleep although her lunch as there. She awakened easily. She is modestly confused. She would appear to be returned to her baseline condition. Arrangements have been made to return to her previous senior care and that is [facility] and [facility]. Physical exam: She looks much better than she did when I saw her last, last week. She exhibits respiration without labor. Breath sounds are distant. CV is regular. Ankles show no edema. Impression: 1.left basilar pneumonia. 2.severe COPD with oxygen dependency. 3.chronic confusion/dementia. Return to senior care. See discharge sequence for medications and routines. Copy Copies To 1: JACK UNGER RODNEY K MD Nov 06, 2017 12:56
--- NOTE | 2017-11-06 13:10 | Discharge Instructions ---
Discharge Instructions Patient Instructions Goal/Follow Up Appt: Return to previous function. Patient Instructions: Implement previous routines. Medications as on the discharge sequence Activity & Diet Discharge Diet: No Restrictions Activity as Tolerated: Yes PABLITO BERNAL MD Nov 06, 2017 13:10
[2017-11-06 15:13] VITALS: BP 110/80
[2017-11-15] MEDS ORDERED: DOXY100C2 PO (08:37)
--- NOTE | 2017-11-23 14:49 | Discharge Summary-Hospitalist ---
Diagnosis/Chief Complaint Date of Admission Oct 31, 2017 at 01:20 Date of Discharge Nov 06, 2017 at 15:13 Discharge Date: Nov 06, 2017 Admission Diagnosis 1.COPD 2.impending respiratory failure. 3.chest x-ray today as compared to yesterday shows development of infiltrate consistent with pneumonia. Discharge Diagnosis Bibasilar pneumonia. 2.sepsis secondary to number 1. 3.COPD/chronic hypoxia (1) Altered mental status Status: Acute (2) Pneumonia Status: Acute (3) Dementia Status: Chronic (4) Acute on chronic respiratory failure Status: Acute Discharge Summary Discharge Physical Exam Allergies: Coded Allergies: codeine (Verified Allergy, Unknown, 02/26/16) morphine (Verified Allergy, Unknown, 02/26/16) General Appearance: Alert, Oriented X3, Cooperative Hospital Course The patient was admitted after having been sent from her senior care to the emergency room because of hypoxia. 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 Initial chest x-ray showed only chronic changes. X-rays taken on the following day showed evidence of a bibasilar. White blood count was 18,000. The patient was a difficult personality. She was treated with empiric Antibiotic and aggressive pulmonary toilet. Her progress was slow but steady and she was deemed ready for discharge back to the senior care. Her status was that of improved but frail. Medications and activities are as on the discharge summary Labs (last 24 hrs) Microbiology 10/31/17 Blood Culture - Final, Complete No growth Patient resulted labs reviewed. Discussion & Recommendations Discharge Planning: <30 minutes discharge planning Discharge Home Medications: Active Scripts Active Reported Doxycycline Hyclate 100 Mg Capsule 100 Mg PO BID 10 Days Sertraline HCl 50 Mg Tablet 150 Mg PO DAILY TAKES 3 (50MG) TABLETS Vitamin D3 (Cholecalciferol (Vitamin D3)) 2,000 Unit Tablet 2,000 Unit PO DAILY Vesicare (Solifenacin Succinate) 5 Mg Tablet 10 Mg PO DAILY TAKES 2 (5MG) TABLETS Ventolin Hfa (Albuterol Sulfate) 18 Gm Hfa.aer.ad 2 Puff INH Q4H PRN Trazodone HCl 100 Mg Tablet 200 Mg PO HS TAKES 2 (100MG) TABLETS Symbicort 160-4.5 Mcg Inhaler (Budesonide/Formoterol Fumarate) 10.2 Gm Hfa.aer.ad 2 Puff INH BID Spiriva (Tiotropium [place]) 1 Inh Aerp 1 Cap INH DAILY Methadone HCl 10 Mg Tablet 10 Mg PO Q8H Lorazepam 0.5 Mg Tablet 0.5 Mg PO Q8H Hydrocodon-Acetaminophn 10-325 (Hydrocodone/Acetaminophen) 1 Each Tablet 1 Tab PO BID Mucinex (Guaifenesin) 600 Mg Tab.er.12h 600 Mg PO BID Baclofen 10 Mg Tablet 10 Mg PO BID Tylenol (Acetaminophen) 325 Mg Tablet 650 Mg PO Q4H PRN TAKES 2 (325MG) TABLET Instructions to patient/family Please see electronic discharge instructions given to patient. Clinical Quality Measures DVT/VTE Risk/Contraindication: Risk Factor Score Per Nursin RFS Level Per Nursing on Admit: 4+=Very High Problem Qualifiers (1) Altered mental status: Altered mental status type: delirium Qualified Codes: R41.0 - Disorientation , unspecified (2) Pneumonia: Pneumonia type: due to unspecified organism Laterality: unspecified laterality Lung location: unspecified part of lung Qualified Codes: J18.9 - Pneumonia, unspecified organism (3) Dementia: Dementia type: unspecified type Dementia behavioral disturbance: with behavioral disturbance Qualified Codes: F03.91 - Unspecified dementia with behavioral disturbance PABLITO BERNAL MD November 23, 2017 14:49
== END 2017-11-06 15:13 | DRG 871 ==
LOC: EDUNIT# 00:25 → ER 00:25 → ICU 01:20 → 4TH 11-03 14:30
PROVIDERS: ADMIT Internal Medicine; ATTEND Internal Medicine
DX: A41.9 Sepsis, unspecified organism (principal); R65.20 Severe sepsis without septic shock; J18.9 Pneumonia, unspecified organism; J44.0 Chronic obstructive pulmonary disease with (acute) lower respiratory infection; J44.1 Chronic obstructive pulmonary disease with (acute) exacerbation; J96.21 Acute and chronic respiratory failure with hypoxia; Z66 Do not resuscitate; E87.6 Hypokalemia; F11.20 Opioid dependence, uncomplicated; F03.91 Unspecified dementia, unspecified severity, with behavioral disturbance; M19.91 Primary osteoarthritis, unspecified site; F41.9 Anxiety disorder, unspecified; G89.4 Chronic pain syndrome; F32.9 Major depressive disorder, single episode, unspecified; K59.00 Constipation, unspecified; D72.829 Elevated white blood cell count, unspecified; Z87.891 Personal history of nicotine dependence; Z99.81 Dependence on supplemental oxygen
CPT/HCPCS: 36415; 51702; 71045; 80053; 81000; 82805; 83605; 83735; 83880; 84100; 84484; 85007; 85025; 85027; 85610; 85730; 87040; 93005; 93041; 94640; 94660; 94664; 94760; 96361; 96365; 96375

== ENCOUNTER 2017-11-12 17:49 | Emergency (ER) | payer MEDICARE, MEDICAID ==
[~2017-11-12] VITALS: Ht 160 cm; Wt 59.0 kg
[~2017-11-12 17:49] MED LIST: ACET325T38 PO; ALBU18HF2 INH; BACL10TA PO; BUDE10.2 INH; CHOL200025 PO; GUAI600T43 PO; HYDR-3820 PO; LORA0.5T PO; METH10TA2 PO; NF-SOLIF5T PO; SERT50TA9 PO; TIOT18CA2 INH; TRAZ100T92 PO
[2017-11-12 18:18] LABS: BASOPHILS % (AUTO) 0 % (0-10); EOSINOPHILS # (AUTO) 0.1 10^3/uL (0.0-0.3); EOSINOPHILS % (AUTO) 1 % (0-10); HEMATOCRIT 33 % (35-52); LYMPHOCYTES # (AUTO) 1.4 X 10^3 (1.0-4.0); LYMPHOCYTES % (AUTO) 17 % (12-44); MEAN CORPUSCULAR HEMOGLOBIN 30 PG (25-34); MEAN CORPUSCULAR HGB CONC 30 G/DL (32-36); MEAN CORPUSCULAR VOLUME 99 FL (80-99); MONOCYTES # (AUTO) 0.8 X 10^3 (0.0-1.0); MONOCYTES % (AUTO) 10 % (0-12); NEUTROPHILS % (AUTO) 72 % (42-75); PLATELET COUNT 183 10^3/uL (130-400); RED BLOOD COUNT 3.33 10^6/uL (4.35-5.85); RED CELL DISTRIBUTION WIDTH 14.3 % (10.0-14.5); WHITE BLOOD COUNT 8.4 10^3/uL (4.3-11.0)
--- NOTE | 2017-11-12 18:21 | Diagnostic Imaging Report ---
INDICATION: Dyspnea, cough and congestion. COMPARISON: Study of 11/03/2017. EXAMINATION: Single view of the chest was obtained. FINDINGS: Heterogeneous air trapping and COPD are present. Cyst or bullous disease, greatest in the right greater the left upper lobe, is unchanged. There is some left perihilar linear scarring, stable. No pneumonia, effusion or pneumothorax. Heart size and vascularity are stable. IMPRESSION: Chronic findings as described, no acute appearing abnormality identified. Dictated by: Dictated on workstation # [id number]
[2017-11-12 18:33] LABS: PROTHROMBIN TIME PATIENT 13.3 SEC (12.2-14.7)
[2017-11-12 18:39] LABS: ALANINE AMINOTRANSFERASE 12 U/L (0-55); ALBUMIN 3.3 GM/DL (3.2-4.5); ALKALINE PHOSPHATASE 66 U/L (40-136); BILIRUBIN,TOTAL 0.3 MG/DL (0.1-1.0); BUN/CREATININE RATIO 15; CALCIUM 8.5 MG/DL (8.5-10.1); CARBON DIOXIDE 28 MMOL/L (21-32); CHLORIDE 102 MMOL/L (98-107); CREATININE SERUM 0.65 MG/DL (0.60-1.30); GFR ESTIMATED > 60; GLUCOSE 132 MG/DL (70-105); POTASSIUM 3.6 MMOL/L (3.6-5.0); SODIUM 140 MMOL/L (135-145); TOTAL PROTEIN 6.9 GM/DL (6.4-8.2)
--- NOTE | 2017-11-12 18:46 | ED Respiratory ---
General Chief Complaint: Respiratory Problems Stated Complaint: DYSPNEA Nursing Triage Note: c/o progressive soa. States SA02 in 70s/low 80s at the [facility]. Had recent admission for pneumonia. EMS gave RT treatment x 2 with significant improvement. SA02 90s at 4l NC currently. Mucoid cough noted. Pt warm to touch. Weakness noted. Pt is DNR according to nursing staff. History of Present Illness Date Seen by Provider: November 12, 2017 Time Seen by Provider: 17:50 Initial Comments 76-year-old female presents for dyspnea, she is a resident of [facility] and was found to have a CO2 is in the upper 70s to low 80s on room air. She was inpatient care approximately one week ago for pneumonia and sepsis. Per EMS she was given 2 albuterol nebulized treatments and her SaO2 improved to the low 90s. She is currently SaO2 92% on 4 L per nasal cannula. She has a course productive cough. She is alert and talkative. Timing/Duration: this afternoon Severity: mild Prior Episodes/Possible Cause: occasional episodes Modifying Factors: Improves With Albuterol Nebulizer Associated Symptoms: cough, shortness of breath Allergies and Home Medications Allergies Coded Allergies: codeine (Verified Allergy, Unknown, 02/26/16) morphine (Verified Allergy, Unknown, 02/26/16) Home Medications Acetaminophen 325 Mg Tablet, 650 MG PO Q4H PRN for PAIN-MILD, (Reported) TAKES 2 (325MG) TABLET Albuterol Sulfate 18 Gm Hfa.aer.ad, 2 PUFF INH Q4H PRN for WHEEZING, (Reported) Baclofen 10 Mg Tablet, 10 MG PO BID, (Reported) Budesonide/Formoterol Fumarate 10.2 Gm Hfa.aer.ad, 2 PUFF INH BID, (Reported) Cholecalciferol (Vitamin D3) 2,000 Unit Tablet, 2,000 UNIT PO DAILY, (Reported) Guaifenesin 600 Mg Tab.er.12h, 600 MG PO BID, (Reported) Hydrocodone/Acetaminophen 1 Each Tablet, 1 TAB PO BID, (Reported) Lorazepam 0.5 Mg Tablet, 0.5 MG PO Q8H, (Reported) Methadone HCl 10 Mg Tablet, 10 MG PO Q8H, (Reported) Sertraline HCl 50 Mg Tablet, 150 MG PO DAILY, (Reported) TAKES 3 (50MG) TABLETS Solifenacin Succinate 5 Mg Tablet, 10 MG PO DAILY, (Reported) TAKES 2 (5MG) TABLETS Tiotropium [place] 1 Inh Aerp, 1 CAP INH DAILY, (Reported) Trazodone HCl 100 Mg Tablet, 200 MG PO HS, (Reported) TAKES 2 (100MG) TABLETS Patient Home Medication List Home Medication List Reviewed: Yes Review of Systems Constitutional: no symptoms reported, see HPI Respiratory: see HPI, cough, phlegm, short of breath All Other Systems Reviewed Negative Unless Noted: Yes Past Vlocnby-Rxojfb-Wgejpk Hx Past Med/Social Hx: Reviewed Nursing Past Med/Soc Hx Patient Social History Alcohol Use: Denies Use Recreational Drug Use: No Smoking Status: Unknown if Ever Smoked Recent Foreign Travel: No Contact w/Someone Who Travel: No Recent Infectious Disease Expo: No Recent Hopitalizations: No Immunizations Up To Date Date of Pneumonia Vaccine: May 02, 2016 Seasonal Allergies Seasonal Allergies: No Past Medical History Surgeries: Yes (SURGERIES UNKNOWN) Abdominal Respiratory: Yes COPD Currently Using BIPAP: Yes Cardiac: No Neurological: No Genitourinary: No Gastrointestinal: No Musculoskeletal: Yes (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) Arthritis Endocrine: No Cancer: No Psychosocial: Yes (Has manipulative behavior) Anxiety, Depression Integumentary: No Blood Disorders: No Physical Exam Vital Signs Vital Signs - First Documented 11/12/17 11/12/17 17:49 21:09 Temp 97.9 Pulse 130 Resp 22 B/P (MAP) 128/71 (90) Pulse Ox 94 O2 Delivery Room Air O2 Flow Rate 4.00 Capillary Refill : Less Than 3 Seconds General Appearance: WD/WN, no apparent distress Eyes: Bilateral Eye Normal Inspection, Bilateral Eye PERRL, Bilateral Eye EOMI HEENT: PERRL/EOMI, normal ENT inspection, TMs normal, pharynx normal Respiratory: chest non-tender, no respiratory distress, decreased breath sounds Cardiovascular: normal peripheral pulses, regular rate, rhythm Gastrointestinal: normal bowel sounds, non tender, soft Neurologic/Psychiatric: no motor/sensory deficits, alert, normal mood/affect Skin: normal color, warm/dry Focused Exam Lactate Level 11/12/17 18:05: Lactic Acid Level 0.73 Lactic Acid Level Laboratory Tests Test 11/12/17 18:05 Lactic Acid Level 0.73 MMOL/L (0.50-2.00) Progress/Results/Core Measures Suspected Sepsis Recent Fever Within 48 Hours: No Infection Criteria Present: Suspected New Infection New/Unexplained Altered Menta: No Sepsis Screen: Possible Sepsis Risk SIRS Temperature:97.9 Pulse: 130 Respiratory Rate: 22 Laboratory Tests 11/12/17 18:05: White Blood Count 8.4 Blood Pressure 128 /71 Mean: 90 11/12/17 18:05: Lactic Acid Level 0.73 Laboratory Tests 11/12/17 18:05: Creatinine 0.65, INR Comment 1.0, Platelet Count 183, Total Bilirubin 0.3 Results/Orders Lab Results Laboratory Tests Test 11/12/17 18:05 11/12/17 20:15 Range/Units White Blood Count 8.4 4.3-11.0 10^3/uL Red Blood Count 3.33 L 4.35-5.85 10^6/uL Hemoglobin 10.0 L 11.5-16.0 G/DL Hematocrit 33 L 35-52 % Mean Corpuscular Volume 99 80-99 FL Mean Corpuscular Hemoglobin 30 25-34 PG Mean Corpuscular Hemoglobin Concent 30 L 32-36 G/DL Red Cell Distribution Width 14.3 10.0-14.5 % Platelet Count 183 130-400 10^3/uL Mean Platelet Volume 11.0 H 7.4-10.4 FL Neutrophils (%) (Auto) 72 42-75 % Lymphocytes (%) (Auto) 17 12-44 % Monocytes (%) (Auto) 10 0-12 % Eosinophils (%) (Auto) 1 0-10 % Basophils (%) (Auto) 0 0-10 % Neutrophils # (Auto) 6.0 1.8-7.8 X 10^3 Lymphocytes # (Auto) 1.4 1.0-4.0 X 10^3 Monocytes # (Auto) 0.8 0.0-1.0 X 10^3 Eosinophils # (Auto) 0.1 0.0-0.3 10^3/uL Basophils # (Auto) 0.0 0.0-0.1 10^3/uL Prothrombin Time 13.3 12.2-14.7 SEC INR Comment 1.0 0.8-1.4 Activated Partial Thromboplast Time 26 24-35 SEC Sodium Level 140 135-145 MMOL/L Potassium Level 3.6 3.6-5.0 MMOL/L Chloride Level 102 98-107 MMOL/L Carbon Dioxide Level 28 21-32 MMOL/L Anion Gap 10 5-14 MMOL/L Blood Urea Nitrogen 10 7-18 MG/DL Creatinine 0.65 0.60-1.30 MG/DL Estimat Glomerular Filtration Rate > 60 BUN/Creatinine Ratio 15 Glucose Level 132 H 70-105 MG/DL Lactic Acid Level 0.73 0.50-2.00 MMOL/L Calcium Level 8.5 8.5-10.1 MG/DL Total Bilirubin 0.3 0.1-1.0 MG/DL Aspartate Amino Transf (AST/SGOT) 15 5-34 U/L Alanine Aminotransferase (ALT/SGPT) 12 0-55 U/L Alkaline Phosphatase 66 40-136 U/L Total Protein 6.9 6.4-8.2 GM/DL Albumin 3.3 3.2-4.5 GM/DL Urine Color YELLOW Urine Clarity SLIGHTLY CLOUDY Urine pH 5 5-9 Urine Specific [place] 1.010 L 1.016-1.022 Urine Protein NEGATIVE NEGATIVE Urine Glucose (UA) NEGATIVE NEGATIVE Urine Ketones NEGATIVE NEGATIVE Urine Nitrite NEGATIVE NEGATIVE Urine Bilirubin NEGATIVE NEGATIVE Urine Urobilinogen NORMAL NORMAL MG/DL Urine Leukocyte Esterase 2+ H NEGATIVE Urine RBC (Auto) NEGATIVE NEGATIVE Urine RBC NONE /HPF Urine WBC 0-2 /HPF Urine Squamous Epithelial Cells 10-25 H /HPF Urine Crystals NONE /LPF Urine Bacteria NEGATIVE /HPF Urine Casts NONE /LPF Urine Mucus NEGATIVE /LPF Urine Yeast LARGE H /HPF Urine Culture Indicated NO My Orders Orders - BERNARDO DOUGHERTY Cbc With Automated Diff (11/12/17 17:55) Comprehensive Metabolic Panel (11/12/17 17:55) Lactic Acid Analyzer (11/12/17 17:55) Blood Culture (11/12/17 17:55) Sputum Culture (11/12/17 17:55) Ua Culture If Indicated (11/12/17 17:55) Protime With Inr (11/12/17 17:55) Partial Thromboplastin Time (11/12/17 17:55) Chest 1 View, Ap/Pa Only (11/12/17 17:55) O2 (11/12/17 17:55) Saline Lock/Iv-Start (11/12/17 17:55) Vital Signs Adult Sepsis Patie Q1H (11/12/17 17:55) Ceftriaxone Injection (Rocephin Injectio (11/12/17 20:00) Azithromycin Tablet (Zithromax Tablet) (11/12/17 19:54) Medications Given in ED Current Medications Medications Dose Ordered Sig/Ling Route Start Time Stop Time Status Last Admin Dose Admin Ceftriaxone Sodium 1000 mg/ Sodium Chloride 100 ml @ 200 mls/hr ONCE ONCE IV 11/12/17 20:00 11/12/17 20:29 DC 11/12/17 20:10 200 MLS/HR Vital Signs/I&O 11/12/17 11/12/17 11/12/17 17:49 17:49 21:09 Temp 97.9 97.1 Pulse 130 87 Resp 22 20 B/P (MAP) 128/71 (90) 123/64 (90) Pulse Ox 94 O2 Delivery Room Air Nasal Cannula Nasal Cannula O2 Flow Rate 4.00 3.00 Capillary Refill : Less Than 3 Seconds Blood Pressure Mean: 90 Progress Note : Time: 17:50 Progress Note Initial evaluation completed, will start sepsis workup due to her recent history of pneumonia. 1844 labs all essentially normal. Chest x-ray shows no acute processes. Patient having no dyspnea, SaO2 94% on 3 L per nasal cannula. Patient has no complaints at this time. 1929 UA and sputum culture obtained. 1999 discharge orders called to [facility], prednisone 60 mg for 3 days, prednisone 40 mg for 3 days followed by prednisone 20 mg for 3 days. Albuterol per nebulizer 3 ML's every 4 hours. Azithromycin 500 mg 3 days. Discharge instructions discussed with the patient. Diagnostic Imaging Diagonstic Imaging: Xray Plain Films/CT/US/NM/MRI: chest Comments NAME: MARILYN GASTON Tyra [facility] REC#: [id number] PT STATUS: REG ER : 1940 PHYSICIAN: BERNARDO DOUGHERTYP ADMIT DATE: 11/12/17/ER Signed Date of Exam: 11/12/17 CHEST 1 VIEW, AP/PA ONLY INDICATION: Dyspnea, cough and congestion. COMPARISON: Study of 11/03/2017. EXAMINATION: Single view of the chest was obtained. FINDINGS: Heterogeneous air trapping and COPD are present. Cyst or bullous disease, greatest in the right greater the left upper lobe, is unchanged. There is some left perihilar linear scarring, stable. No pneumonia, effusion or pneumothorax. Heart size and vascularity are stable. IMPRESSION: Chronic findings as described, no acute appearing abnormality identified. Dictated by: Dictated on workstation # [id number] Dict: 11/12/171814 Trans: 11/12/171833 Interpreted by: LUIS DANIEL MURO Electronically signed by: LUIS DANIEL MURO 11/12/171833 Departure Impression Primary Impression: Cough Additional Impressions: Dyspnea Qualified Codes: R06.02 - Shortness of breath COPD exacerbation Disposition: HOME, SELF-CARE Condition: Improved Departure-Patient Inst. Decision time for Depature: 20:00 Referrals: JACK UNGER DO (PCP/Family) Primary Care Physician Patient Instructions: Exacerbation of COPD (DC) Add. Discharge Instructions: Medications called to [facility]. (Prednisone, Alubterol Neb and Azithromycin). Increase water intake. Return to emergency department for difficulty breathing not relieved with albuterol nebulized treatment, fever greater than 101 not relieved by Tylenol, new problems or concerns. All discharge instructions reviewed with patient and/or family. Voiced understanding. Copy Copies To 1: JACK UNGER AMY ARNP November 12, 2017 18:46
[2017-11-12] MEDS ORDERED: AZITHROMYCIN 250 MG TAB (ZITHROMAX) PO STA (19:54)
[2017-11-12] MEDS ORDERED: cefTRIAXone INJECTION 1,000 MG in NS (IVPB) 100 ML IV ONE (20:00)
[2017-11-12 20:26] LABS: BILIRUBIN,URINE NEGATIVE (NEGATIVE); CLARITY,URINE SLIGHTLY CLOUDY; COLOR,URINE YELLOW; GLUCOSE, URINE (UA) NEGATIVE (NEGATIVE); KETONES,URINE NEGATIVE (NEGATIVE); LEUKOCYTE ESTERASE ,URINE 2+ (NEGATIVE); NITRITE,URINE NEGATIVE (NEGATIVE); PH,URINE 5 (5-9); PROTEIN,URINE NEGATIVE (NEGATIVE); UROBILINOGEN,URINE NORMAL (NORMAL)
[2017-11-12 20:36] LABS: BACTERIA,URINE NEGATIVE /HPF; WBC,URINE 0-2 /HPF
[2017-11-12 20:37] LABS: YEAST,URINE LARGE /HPF
[2017-11-12 21:09] VITALS: BP 123/64
[2017-11-15] MEDS ORDERED: DOXY100C2 PO (08:37)
== END 2017-11-12 21:09 | disposition home or self-care (01) ==
LOC: EDUNIT# 17:49 → ER 17:50
DX: J44.1 Chronic obstructive pulmonary disease with (acute) exacerbation (principal); F41.9 Anxiety disorder, unspecified; F32.9 Major depressive disorder, single episode, unspecified; F11.20 Opioid dependence, uncomplicated; Z88.5 Allergy status to narcotic agent; Z99.81 Dependence on supplemental oxygen; Z98.890 Other specified postprocedural states
CPT/HCPCS: 36415; 71045; 80053; 81000; 83605; 85025; 85610; 85730; 87040; 87070; 87077; 87186; 87205; 96365